=== PATIENT | male | born 1950 | race African-American/Black ===

== ENCOUNTER 2016-11-28 04:36 | Inpatient (IN) | payer MEDICAID ==
[~2016-11-28] VITALS: Ht 177.8 cm; Wt 118.8 kg
[~2016-11-28 04:36] MED LIST: ASPI-1159 PO; ATOR10TA PO; DEXT15DR5 EACHEYE; GABA-531 PO; GLIP5TAB12 PO; LOSA1TAB33 PO; OMEP40CA34 PO; PIOG30TA10 PO; RIVA20TA PO
[2016-11-28] MEDS ORDERED: IPRATROPIUM BROMIDE (0.02%) 0.5MG/2.5ML NEB HHN STA (06:12)
[2016-11-28] MEDS ORDERED: ALBUTEROL (0.083%) 2.5MG/3ML NEB HHN STA (06:12)
[2016-11-28] MEDS ORDERED: MAGNESIUM 2 G PREMIX 50 ML IV ONE (06:15)
[2016-11-28] MEDS ORDERED: HYDROCODONE/ACETAMINOPHEN 5/325MG TABLET PO ONE (06:15)
[2016-11-28] MEDS ORDERED: NITROGLYCERIN OINT 1GM/INCH UDPKT TD ONE (06:15)
[2016-11-28 06:52] LABS: BASOPHILS % 1.1 % (0.0-2.0); EOSINOPHILS % 1.8 % (0.0-5.0); HEMATOCRIT. 44.3 % (42.0-52.0); HEMOGLOBIN. 14.9 g/dL (14.0-18.0); LYMPHOCYTES % 27.8 % (20.0-50.0); MEAN CORPUSCULAR HEMOGLOBIN 30.6 pg (28.0-32.0); MEAN CORPUSCULAR VOLUME 91.1 fL (80.0-94.0); MONOCYTES % 11.1 % (2.0-8.0); NEUTROPHILS % 58.2 % (40.0-76.0); PLATELET 205 x1000/uL (130-400); RED BLOOD CELL COUNT 4.86 mill/uL (4.7-6.1); RED CELL DISTRIBUTION WIDTH 13.6 % (11.6-14.6)
[2016-11-28 06:58] LABS: INR 1.1; PARTIAL THROMBOPLASTIN TIME 26.4 sec (23.4-31.0)
[2016-11-28 07:09] LABS: CARBON DIOXIDE 27 mEq/L (21-32); CHLORIDE 103 mEq/L (98-107); TROPONIN I < 0.02 ng/mL (0.00-0.04)
[2016-11-28] MEDS ORDERED: FUROSEMIDE 20MG/2ML VIAL IVP ONE (09:15)
[2016-11-28 09:18] LABS: CLARITY URINE CLEAR (CLEAR); COLOR URINE DARK YELLOW (YELLOW); GLUCOSE URINE NEGATIVE (NEGATIVE); KETONES URINE TRACE (NEGATIVE); LEUKOCYTE ESTERASE URINE 2+ (NEGATIVE); NITRITE URINE NEGATIVE (NEGATIVE); OCCULT BLOOD URINE NEGATIVE (NEGATIVE); PH URINE 5.5 (4.5-8.0); PROTEIN URINE TRACE (NEGATIVE); SPECIFIC GRAVITY URINE 1.034 (1.005-1.030)
[2016-11-28 10:45] VITALS: BP 130/69
[2016-11-28] MEDS ORDERED: ONDANSETRON HCL 4MG/2ML VIAL IV PRN (11:45)
[2016-11-28] MEDS ORDERED: IPRATROPIUM/ALBUTEROL 0.5-3(2.5)MG/3ML NEB INH PRN (11:45)
[2016-11-28] MEDS ORDERED: DIPHENHYDRAMINE 50MG/ML VIAL IV PRN (11:45)
[2016-11-28] MEDS ORDERED: GUAIFENESIN 200MG/10ML SUGAR FREE UDC PO PRN (11:45)
[2016-11-28] MEDS ORDERED: MAGNESIUM/ALUMINUM HYDROXIDE/SIMETHICONE 30ML UDC PO PRN (11:45)
[2016-11-28] MEDS ORDERED: ACETAMINOPHEN 325MG TABLET PO PRN (11:45)
[2016-11-28] MEDS ORDERED: CLONIDINE 0.1MG TABLET PO PRN (11:45)
[2016-11-28 12:00] VITALS: BP 113/71
[2016-11-28] MEDS ORDERED: DEXTROSE 50% WATER 50ML SYRINGE IV PRN (12:00)
[2016-11-28] MEDS: INSULIN LISPRO 100 UNITS/ML SUBCUT SCH ×3 (12:15→21:00)
[2016-11-28] MEDS: HYDROCODONE/ACETAMINOPHEN 5/325MG TABLET PO PRN (14:41)
[2016-11-28 16:00] VITALS: BP 115/51
[2016-11-28 16:33] LABS: CREATINE KINASE 181 IU/L (39-308); CREATINE KINASE MB FRACTION 0.7 ng/mL (0.5-3.6); TROPONIN I < 0.02 ng/mL (0.00-0.04)
[2016-11-28] MEDS: RIVAROXABAN 20 MG TABLET PO SCH (16:48)
[2016-11-28] MEDS: BLOOD SUGAR DIAGNOSTIC STRIP TEST SCH ×2 (16:48→21:00)
[2016-11-28] MEDS: POLYVINYL ALCOHOL OPHTH DROPS 15ML EACHEYE SCH (16:48)
[2016-11-28 18:54] LABS: CLARITY URINE CLEAR (CLEAR); COLOR URINE DARK YELLOW (YELLOW); GLUCOSE URINE NEGATIVE (NEGATIVE); KETONES URINE NEGATIVE (NEGATIVE); LEUKOCYTE ESTERASE URINE 2+ (NEGATIVE); NITRITE URINE NEGATIVE (NEGATIVE); OCCULT BLOOD URINE NEGATIVE (NEGATIVE); PH URINE 5.5 (4.5-8.0); PROTEIN URINE NEGATIVE (NEGATIVE); SPECIFIC GRAVITY URINE 1.026 (1.005-1.030)
[2016-11-28 20:00] VITALS: BP 96/47
[2016-11-28 22:00] VITALS: BP 122/77
[2016-11-28] MEDS: ATORVASTATIN CALCIUM 10MG TABLET PO SCH (22:02)
[2016-11-28] MEDS: GABAPENTIN 300MG CAPSULE PO SCH (22:03)
[2016-11-28] MEDS: ZOLPIDEM TARTRATE 5MG TABLET PO PRN (22:03)
[2016-11-29] VITALS (7 sets, daily range): BP systolic 74–129; BP diastolic 37–87
[2016-11-29 00:22] LABS: CREATINE KINASE 172 IU/L (39-308); CREATINE KINASE MB FRACTION 1.3 ng/mL (0.5-3.6); TROPONIN I < 0.02 ng/mL (0.00-0.04)
[2016-11-29] MEDS: HYDROCODONE/ACETAMINOPHEN 5/325MG TABLET PO PRN ×3 (03:03→18:41)
[2016-11-29] MEDS: BLOOD SUGAR DIAGNOSTIC STRIP TEST SCH ×4 (06:05→20:04)
[2016-11-29] MEDS: INSULIN LISPRO 100 UNITS/ML SUBCUT SCH ×4 (06:05→20:04)
[2016-11-29] MEDS: OMEPRAZOLE 20MG CAPSULE EXTENDED RELEASE PO SCH (07:02)
[2016-11-29 07:22] LABS: CARBON DIOXIDE 26 mEq/L (21-32); CHLORIDE 101 mEq/L (98-107)
[2016-11-29] MEDS ORDERED: SODIUM CHLORIDE 0.9% 200 ML IV SCH (08:00)
[2016-11-29] MEDS: GLIPIZIDE 5MG TABLET PO SCH (08:22)
[2016-11-29] MEDS: POLYVINYL ALCOHOL OPHTH DROPS 15ML EACHEYE SCH ×2 (08:22→17:08)
[2016-11-29] MEDS: PIOGLITAZONE 30MG TABLET PO SCH (08:22)
[2016-11-29] MEDS: ASPIRIN 81MG EC TABLET PO SCH (08:22)
[2016-11-29] MEDS: HYDROCHLOROTHIAZIDE 12.5MG CAPSULE PO SCH (08:23)
[2016-11-29] MEDS: LOSARTAN POTASSIUM 100 MG TABLET PO SCH (08:23)
[2016-11-29] MEDS: FUROSEMIDE 20MG/2ML VIAL IV SCH (08:23)
[2016-11-29] MEDS ORDERED: ASPIRIN 81MG EC TABLET PO SCH (09:00)
[2016-11-29 09:41] LABS: EOSINOPHILS % 2.6 % (0.0-5.0); HEMATOCRIT. 44.8 % (42.0-52.0); HEMOGLOBIN. 14.7 g/dL (14.0-18.0); LYMPHOCYTES % 25.6 % (20.0-50.0); MEAN CORPUSCULAR HEMOGLOBIN 30.3 pg (28.0-32.0); MEAN CORPUSCULAR VOLUME 92.1 fL (80.0-94.0); MEAN PLATELET VOLUME 8.3 fl (7.4-10.4); MONOCYTES % 8.3 % (2.0-8.0); NEUTROPHILS % 62.5 % (40.0-76.0); PLATELET 212 x1000/uL (130-400); RED BLOOD CELL COUNT 4.87 mill/uL (4.7-6.1); RED CELL DISTRIBUTION WIDTH 13.5 % (11.6-14.6)
[2016-11-29] MEDS: RIVAROXABAN 20 MG TABLET PO SCH (17:09)
[2016-11-29] MEDS: ATORVASTATIN CALCIUM 10MG TABLET PO SCH (20:03)
[2016-11-29] MEDS: GABAPENTIN 300MG CAPSULE PO SCH (20:03)
[2016-11-29] MEDS: ZOLPIDEM TARTRATE 5MG TABLET PO PRN (22:10)
[2016-11-30] VITALS (7 sets, daily range): BP systolic 98–138; BP diastolic 61–94
[2016-11-30] MEDS: BLOOD SUGAR DIAGNOSTIC STRIP TEST SCH ×4 (06:19→21:03)
[2016-11-30] MEDS: INSULIN LISPRO 100 UNITS/ML SUBCUT SCH ×4 (06:22→21:00)
[2016-11-30] MEDS: OMEPRAZOLE 20MG CAPSULE EXTENDED RELEASE PO SCH (07:03)
[2016-11-30] MEDS: GLIPIZIDE 5MG TABLET PO SCH (07:03)
[2016-11-30] MEDS: HYDROCHLOROTHIAZIDE 12.5MG CAPSULE PO SCH (08:53)
[2016-11-30] MEDS: PIOGLITAZONE 30MG TABLET PO SCH (08:55)
[2016-11-30] MEDS: HYDROCODONE/ACETAMINOPHEN 5/325MG TABLET PO PRN (08:55)
[2016-11-30] MEDS: FUROSEMIDE 20MG/2ML VIAL IV SCH (08:55)
[2016-11-30] MEDS: ASPIRIN 81MG EC TABLET PO SCH (08:56)
[2016-11-30] MEDS: LOSARTAN POTASSIUM 100 MG TABLET PO SCH (08:56)
[2016-11-30] MEDS: POLYVINYL ALCOHOL OPHTH DROPS 15ML EACHEYE SCH ×2 (11:36→16:56)
[2016-11-30] MEDS ORDERED: METOPROLOL TARTRATE 5MG/5ML VIAL IV NR (12:15)
[2016-11-30] MEDS: RIVAROXABAN 20 MG TABLET PO SCH (16:56)
[2016-11-30] MEDS: GABAPENTIN 300MG CAPSULE PO SCH (21:02)
[2016-11-30] MEDS: DOCUSATE SODIUM 100MG CAPSULE PO PRN (21:02)
[2016-11-30] MEDS: METOPROLOL TARTRATE 50MG TABLET PO SCH (21:03)
[2016-11-30] MEDS: ZOLPIDEM TARTRATE 5MG TABLET PO PRN (21:03)
[2016-11-30] MEDS: ATORVASTATIN CALCIUM 10MG TABLET PO SCH (21:03)
[2016-12-01] VITALS: BP 117/73
[2016-12-01 04:00] VITALS: BP_SYST 103; BP_SYST 117; BP_DIAS 73; BP_DIAS 75
[2016-12-01] MEDS: INSULIN LISPRO 100 UNITS/ML SUBCUT SCH ×4 (06:02→21:00)
[2016-12-01] MEDS: BLOOD SUGAR DIAGNOSTIC STRIP TEST SCH ×4 (06:02→20:58)
[2016-12-01 07:06] LABS: BASOPHILS % 0.6 % (0.0-2.0); EOSINOPHILS % 1.2 % (0.0-5.0); HEMOGLOBIN. 14.7 g/dL (14.0-18.0); LYMPHOCYTES % 17.2 % (20.0-50.0); MEAN CORPUSCULAR HEMOGLOBIN 30.6 pg (28.0-32.0); MEAN CORPUSCULAR VOLUME 91.2 fL (80.0-94.0); MEAN PLATELET VOLUME 8.5 fl (7.4-10.4); PLATELET 216 x1000/uL (130-400); RED BLOOD CELL COUNT 4.82 mill/uL (4.7-6.1); RED CELL DISTRIBUTION WIDTH 13.3 % (11.6-14.6)
[2016-12-01 07:37] LABS: CARBON DIOXIDE 27 mEq/L (21-32); CHLORIDE 101 mEq/L (98-107)
[2016-12-01 08:00] VITALS: BP 105/93
[2016-12-01] MEDS: FUROSEMIDE 20MG/2ML VIAL IV SCH (08:40)
[2016-12-01] MEDS: LOSARTAN POTASSIUM 100 MG TABLET PO SCH (08:40)
[2016-12-01] MEDS: GLIPIZIDE 5MG TABLET PO SCH (08:41)
[2016-12-01] MEDS: ASPIRIN 81MG EC TABLET PO SCH (08:41)
[2016-12-01] MEDS: HYDROCHLOROTHIAZIDE 12.5MG CAPSULE PO SCH (08:41)
[2016-12-01] MEDS: DOCUSATE SODIUM 100MG CAPSULE PO PRN (08:41)
[2016-12-01] MEDS: PIOGLITAZONE 30MG TABLET PO SCH (08:41)
[2016-12-01] MEDS: METOPROLOL TARTRATE 50MG TABLET PO SCH (08:42)
[2016-12-01] MEDS: OMEPRAZOLE 20MG CAPSULE EXTENDED RELEASE PO SCH (08:42)
[2016-12-01] MEDS: POLYVINYL ALCOHOL OPHTH DROPS 15ML EACHEYE SCH ×2 (08:43→16:25)
[2016-12-01] MEDS: RIVAROXABAN 20 MG TABLET PO SCH (16:25)
[2016-12-01 20:00] VITALS: BP 108/63
[2016-12-01] MEDS: GABAPENTIN 300MG CAPSULE PO SCH (20:56)
[2016-12-01] MEDS: ATORVASTATIN CALCIUM 10MG TABLET PO SCH (20:56)
[2016-12-01] MEDS: METOPROLOL TARTRATE 100MG TABLET PO SCH (20:56)
[2016-12-01] MEDS: ZOLPIDEM TARTRATE 5MG TABLET PO PRN (23:58)
[2016-12-02] VITALS: BP 110/63
[2016-12-02 04:00] VITALS: BP 105/61
[2016-12-02] MEDS: GLIPIZIDE 5MG TABLET PO SCH (06:17)
[2016-12-02] MEDS: BLOOD SUGAR DIAGNOSTIC STRIP TEST SCH ×2 (06:17→13:05)
[2016-12-02] MEDS: OMEPRAZOLE 20MG CAPSULE EXTENDED RELEASE PO SCH (06:17)
[2016-12-02] MEDS: INSULIN LISPRO 100 UNITS/ML SUBCUT SCH ×2 (06:39→12:15)
[2016-12-02 08:00] VITALS: BP 103/62
[2016-12-02] MEDS: METOPROLOL TARTRATE 100MG TABLET PO SCH (09:00)
[2016-12-02] MEDS ORDERED: LOSARTAN POTASSIUM 50 MG TABLET PO SCH (09:00)
[2016-12-02] MEDS: FUROSEMIDE 20MG/2ML VIAL IV SCH (10:14)
[2016-12-02] MEDS: ASPIRIN 81MG EC TABLET PO SCH (10:14)
[2016-12-02] MEDS: POLYVINYL ALCOHOL OPHTH DROPS 15ML EACHEYE SCH (10:14)
[2016-12-02] MEDS: PIOGLITAZONE 30MG TABLET PO SCH (10:14)
[2016-12-02] MEDS ORDERED: DILTIAZEM HCL 60MG TABLET PO SCH (11:00)
[2016-12-02 12:00] VITALS: BP 104/64
[2016-12-02] MEDS ORDERED: RIVA20TA PO (12:08)
[2016-12-02] MEDS ORDERED: FURO20TA4 PO (12:08)
[2016-12-02] MEDS ORDERED: METO100T5 PO (12:08)
[2016-12-02] MEDS ORDERED: DILT60TA35 PO (12:08)
[2016-12-02 15:13] VITALS: BP 104/64
[2016-12-03] MEDS ORDERED: FUROSEMIDE 20MG TABLET PO SCH (09:00)
== END 2016-12-02 15:50 | disposition home or self-care (01) | DRG 133 ==
LOC: ER 05:05 → ENRESERV 08:12 → EDBEDREQ 09:19 → 5WST 10:50
PROVIDERS: ADMIT Internal Medicine; ATTEND Internal Medicine
DX: J96.00 Acute respiratory failure, unspecified whether with hypoxia or hypercapnia (principal); I50.33 Acute on chronic diastolic (congestive) heart failure; I69.351 Hemiplegia and hemiparesis following cerebral infarction affecting right dominant side; E44.1 Mild protein-calorie malnutrition; J44.1 Chronic obstructive pulmonary disease with (acute) exacerbation; I48.91 Unspecified atrial fibrillation; I11.0 Hypertensive heart disease with heart failure; K27.9 Peptic ulcer, site unspecified, unspecified as acute or chronic, without hemorrhage or perforation; I25.119 Atherosclerotic heart disease of native coronary artery with unspecified angina pectoris; E66.01 Morbid (severe) obesity due to excess calories; K21.9 Gastro-esophageal reflux disease without esophagitis; E11.9 Type 2 diabetes mellitus without complications; E78.5 Hyperlipidemia, unspecified; H55.00 Unspecified nystagmus; H91.90 Unspecified hearing loss, unspecified ear; N39.0 Urinary tract infection, site not specified; Z79.01 Long term (current) use of anticoagulants; Z90.49 Acquired absence of other specified parts of digestive tract; I69.392 Facial weakness following cerebral infarction; Z68.37 Body mass index [BMI] 37.0-37.9, adult
CPT/HCPCS: 36415; 71010; 80048; 80053; 81001; 82550; 82553; 82962; 83605; 83690; 83880; 84439; 84443; 84484; 85025; 85610; 85730; 87040; 87086; 93005; 93970; 94664; 96365; 96375; 97162; 99291; J1940; J3475; J3490; J7050; J7611

== ENCOUNTER 2016-12-27 20:56 | Inpatient (IN) | payer MEDICAID ==
[~2016-12-27] VITALS: Ht 188 cm; Wt 162.4 kg
[~2016-12-27 20:56] MED LIST changes: +DILT60TA35 PO; +FURO20TA4 PO; -LOSA1TAB33 PO; +METO100T5 PO
[2016-12-28] MEDS ORDERED: ONDANSETRON HCL 4MG/2ML VIAL IV STA (01:31)
[2016-12-28] MEDS ORDERED: MORPHINE SULFATE 4 MG/ML CPJ (NOT FOR IM USE) IV STA (01:31)
[2016-12-28] MEDS ORDERED: FENTANYL CITRATE/PF 50MCG/ML 2ML VIAL IV ONE (01:45)
[2016-12-28 02:00] LABS: BASOPHILS % 0.9 % (0.0-2.0); EOSINOPHILS % 1.4 % (0.0-5.0); HEMATOCRIT. 42.1 % (42.0-52.0); HEMOGLOBIN. 14.5 g/dL (14.0-18.0); MEAN CORPUSCULAR VOLUME 90.1 fL (80.0-94.0); MEAN PLATELET VOLUME 7.3 fl (7.4-10.4); MONOCYTES % 7.3 % (2.0-8.0); NEUTROPHILS % 71.4 % (40.0-76.0); PLATELET 209 x1000/uL (130-400); RED BLOOD CELL COUNT 4.67 mill/uL (4.7-6.1); RED CELL DISTRIBUTION WIDTH 13.5 % (11.6-14.6)
[2016-12-28 02:04] LABS: INR 1.2; PROTHROMBIN TIME 12.7 sec (9.4-11.6)
[2016-12-28 02:14] LABS: CARBON DIOXIDE 28 mEq/L (21-32); CHLORIDE 98 mEq/L (98-107); TROPONIN I < 0.02 ng/mL (0.00-0.04)
[2016-12-28] MEDS ORDERED: FUROSEMIDE 40MG/4ML VIAL IVP SCH (02:30)
[2016-12-28] MEDS ORDERED: ASPIRIN 81MG TABLET PO ONE (04:00)
[2016-12-28 09:17] VITALS: BP 121/44
[2016-12-28] MEDS ORDERED: CLONIDINE 0.1MG TABLET PO PRN (09:30)
[2016-12-28] MEDS ORDERED: DEXTROSE 50% WATER 50ML SYRINGE IV PRN (09:30)
[2016-12-28] MEDS ORDERED: ACETAMINOPHEN 325MG TABLET PO PRN (09:30)
[2016-12-28] MEDS ORDERED: LORAZEPAM 1MG TABLET PO PRN (09:30)
[2016-12-28] MEDS ORDERED: DIPHENHYDRAMINE 50MG/ML VIAL IV PRN (09:30)
[2016-12-28] MEDS ORDERED: ONDANSETRON HCL 4MG/2ML VIAL IV PRN (09:30)
[2016-12-28] MEDS: GLIPIZIDE 5MG TABLET PO SCH (10:27)
[2016-12-28] MEDS: FUROSEMIDE 20MG TABLET PO SCH (10:27)
[2016-12-28] MEDS: BLOOD SUGAR DIAGNOSTIC STRIP TEST SCH ×3 (11:56→20:24)
[2016-12-28] MEDS: PIOGLITAZONE 30MG TABLET PO SCH (11:58)
[2016-12-28] MEDS: INSULIN LISPRO 100 UNITS/ML SUBCUT SCH ×3 (11:59→20:24)
[2016-12-28 12:00] VITALS: BP 124/86
[2016-12-28 15:50] LABS: CLARITY URINE CLEAR (CLEAR); COLOR URINE YELLOW (YELLOW); GLUCOSE URINE NEGATIVE (NEGATIVE); KETONES URINE NEGATIVE (NEGATIVE); LEUKOCYTE ESTERASE URINE 1+ (NEGATIVE); NITRITE URINE NEGATIVE (NEGATIVE); OCCULT BLOOD URINE NEGATIVE (NEGATIVE); PROTEIN URINE NEGATIVE (NEGATIVE); SPECIFIC GRAVITY URINE 1.015 (1.005-1.030)
[2016-12-28 16:00] VITALS: BP 124/80
[2016-12-28 16:13] LABS: *AMPHETAMINES SCREEN URINE NEGATIVE (NEGATIVE); *BARBITURATES SCREEN URINE NEGATIVE (NEGATIVE); *BENZODIAZEPINES SCREEN URINE NEGATIVE (NEGATIVE); *COCAINE SCREEN URINE NEGATIVE (NEGATIVE); CANNABINOID URINE SCREEN NEGATIVE (NEGATIVE); METHADONE URINE SCREEN NEGATIVE (NEGATIVE); OPIATES URINE SCREEN PRESUMTIVE POSITIVE (NEGATIVE); PHENCYCLIDINE URINE SCREEN NEGATIVE (NEGATIVE)
[2016-12-28] MEDS: RIVAROXABAN 20 MG TABLET PO SCH (17:21)
[2016-12-28] MEDS: DILTIAZEM HCL 60MG TABLET PO SCH (17:22)
[2016-12-28] MEDS: HYDROCODONE/ACETAMINOPHEN 10/325MG TABLET PO PRN (17:22)
[2016-12-28 17:40] LABS: TROPONIN I < 0.02 ng/mL (0.00-0.04)
[2016-12-28 17:41] LABS: CREATINE KINASE 344 IU/L (39-308)
[2016-12-28] MEDS ORDERED: DILTIAZEM HCL 60MG TABLET PO SCH ×2 (18:00→21:00)
[2016-12-28 20:00] VITALS: BP 106/69
[2016-12-28] MEDS: METOPROLOL TARTRATE 100MG TABLET PO SCH (20:25)
[2016-12-28] MEDS: ATORVASTATIN CALCIUM 10MG TABLET PO SCH (20:30)
[2016-12-28] MEDS: GABAPENTIN 300MG CAPSULE PO SCH (20:30)
[2016-12-28] MEDS: ZOLPIDEM TARTRATE 5MG TABLET PO PRN (22:03)
[2016-12-29] VITALS: BP 138/90
[2016-12-29 00:28] LABS: CREATINE KINASE 237 IU/L (39-308); TROPONIN I < 0.02 ng/mL (0.00-0.04)
[2016-12-29] MEDS: DILTIAZEM HCL 60MG TABLET PO SCH ×4 (00:35→17:30)
[2016-12-29 04:00] VITALS: BP 112/77
[2016-12-29] MEDS: INSULIN LISPRO 100 UNITS/ML SUBCUT SCH ×4 (06:22→20:21)
[2016-12-29] MEDS: BLOOD SUGAR DIAGNOSTIC STRIP TEST SCH ×4 (06:22→20:20)
[2016-12-29 08:00] VITALS: BP 117/87
[2016-12-29] MEDS: METOPROLOL TARTRATE 100MG TABLET PO SCH (09:00)
[2016-12-29] MEDS: PIOGLITAZONE 30MG TABLET PO SCH (09:17)
[2016-12-29] MEDS: DOCUSATE SODIUM 100MG CAPSULE PO PRN ×2 (09:18→17:30)
[2016-12-29] MEDS: FUROSEMIDE 20MG TABLET PO SCH (09:18)
[2016-12-29] MEDS: ASPIRIN 81MG EC TABLET PO SCH (09:18)
[2016-12-29] MEDS: GLIPIZIDE 5MG TABLET PO SCH (09:18)
[2016-12-29 09:39] LABS: BASOPHILS % 0.8 % (0.0-2.0); EOSINOPHILS % 2.1 % (0.0-5.0); HEMATOCRIT. 47.6 % (42.0-52.0); HEMOGLOBIN. 15.8 g/dL (14.0-18.0); MEAN CORPUSCULAR HEMOGLOBIN 30.2 pg (28.0-32.0); MEAN CORPUSCULAR VOLUME 91.1 fL (80.0-94.0); MEAN PLATELET VOLUME 7.9 fl (7.4-10.4); MONOCYTES % 9.3 % (2.0-8.0); NEUTROPHILS % 61.8 % (40.0-76.0); PLATELET 220 x1000/uL (130-400); RED BLOOD CELL COUNT 5.23 mill/uL (4.7-6.1); RED CELL DISTRIBUTION WIDTH 13.3 % (11.6-14.6)
[2016-12-29 10:05] LABS: CARBON DIOXIDE 27 mEq/L (21-32); CHLORIDE 96 mEq/L (98-107); HDL CHOLESTEROL 74 mg/dL (40-59); LDL CHOLESTEROL 54 mg/dL (5-100)
[2016-12-29 12:23] VITALS: BP 126/78
[2016-12-29 15:57] VITALS: BP 133/85
[2016-12-29] MEDS: RIVAROXABAN 20 MG TABLET PO SCH (17:30)
[2016-12-29] MEDS: HYDROCODONE/ACETAMINOPHEN 10/325MG TABLET PO PRN (17:32)
[2016-12-29 20:00] VITALS: BP 115/80
[2016-12-29] MEDS: ATORVASTATIN CALCIUM 10MG TABLET PO SCH (20:17)
[2016-12-29] MEDS: GABAPENTIN 300MG CAPSULE PO SCH (20:19)
[2016-12-29] MEDS: METOPROLOL TARTRATE 50MG TABLET PO SCH (20:19)
[2016-12-29] MEDS: ZOLPIDEM TARTRATE 5MG TABLET PO PRN (22:04)
[2016-12-30] VITALS: BP 118/76
[2016-12-30 04:00] VITALS: BP 128/74
[2016-12-30] MEDS: DILTIAZEM HCL 60MG TABLET PO SCH ×2 (05:54)
[2016-12-30] MEDS: BLOOD SUGAR DIAGNOSTIC STRIP TEST SCH ×4 (06:07→21:00)
[2016-12-30] MEDS: INSULIN LISPRO 100 UNITS/ML SUBCUT SCH ×4 (06:08→21:00)
[2016-12-30 07:37] VITALS: BP 119/76
[2016-12-30] MEDS: PIOGLITAZONE 30MG TABLET PO SCH (08:10)
[2016-12-30] MEDS: ASPIRIN 81MG EC TABLET PO SCH (08:10)
[2016-12-30] MEDS: METOPROLOL TARTRATE 50MG TABLET PO SCH (08:11)
[2016-12-30] MEDS: GLIPIZIDE 5MG TABLET PO SCH (08:11)
[2016-12-30] MEDS: FUROSEMIDE 20MG TABLET PO SCH (09:00)
[2016-12-30] MEDS ORDERED: METOPROLOL TARTRATE 50MG TABLET PO SCH (10:50)
[2016-12-30] MEDS: DILTIAZEM HCL 90MG TABLET PO SCH ×3 (11:13→23:59)
[2016-12-30 12:00] VITALS: BP 113/78
[2016-12-30 16:08] VITALS: BP 117/70
[2016-12-30] MEDS: RIVAROXABAN 20 MG TABLET PO SCH (17:26)
[2016-12-30 20:00] VITALS: BP 102/63
[2016-12-30] MEDS: METOPROLOL TARTRATE 100MG TABLET PO SCH (20:42)
[2016-12-30] MEDS: ATORVASTATIN CALCIUM 10MG TABLET PO SCH (20:42)
[2016-12-30] MEDS: GABAPENTIN 300MG CAPSULE PO SCH (20:42)
[2016-12-30] MEDS: ZOLPIDEM TARTRATE 5MG TABLET PO PRN (21:41)
[2016-12-31] VITALS (7 sets, daily range): BP systolic 93–113; BP diastolic 56–79
[2016-12-31] MEDS: INSULIN LISPRO 100 UNITS/ML SUBCUT SCH ×4 (05:58→21:00)
[2016-12-31] MEDS: BLOOD SUGAR DIAGNOSTIC STRIP TEST SCH ×4 (05:58→21:28)
[2016-12-31] MEDS: DILTIAZEM HCL 90MG TABLET PO SCH ×4 (05:58→23:55)
[2016-12-31] MEDS: GLIPIZIDE 5MG TABLET PO SCH (08:38)
[2016-12-31] MEDS: PIOGLITAZONE 30MG TABLET PO SCH (08:39)
[2016-12-31] MEDS: FUROSEMIDE 20MG TABLET PO SCH (08:39)
[2016-12-31] MEDS: METOPROLOL TARTRATE 100MG TABLET PO SCH ×2 (08:39→21:26)
[2016-12-31] MEDS: ASPIRIN 81MG EC TABLET PO SCH (08:39)
[2016-12-31] MEDS ORDERED: METOPROLOL TARTRATE 5MG/5ML VIAL IV SCH (11:00)
[2016-12-31] MEDS: RIVAROXABAN 20 MG TABLET PO SCH (16:15)
[2016-12-31] MEDS: GABAPENTIN 300MG CAPSULE PO SCH (21:26)
[2016-12-31] MEDS: ATORVASTATIN CALCIUM 10MG TABLET PO SCH (21:26)
[2016-12-31] MEDS: HYDROCODONE/ACETAMINOPHEN 10/325MG TABLET PO PRN (21:27)
[2016-12-31] MEDS: ZOLPIDEM TARTRATE 5MG TABLET PO PRN (22:07)
[2017-01-01 04:00] VITALS: BP 118/72
[2017-01-01] MEDS: DILTIAZEM HCL 90MG TABLET PO SCH (05:29)
[2017-01-01] MEDS: INSULIN LISPRO 100 UNITS/ML SUBCUT SCH ×2 (07:40→12:07)
[2017-01-01] MEDS: BLOOD SUGAR DIAGNOSTIC STRIP TEST SCH ×2 (07:40→12:07)
[2017-01-01 08:00] VITALS: BP 131/72
[2017-01-01] MEDS: GLIPIZIDE 5MG TABLET PO SCH (09:30)
[2017-01-01] MEDS: PIOGLITAZONE 30MG TABLET PO SCH (09:30)
[2017-01-01] MEDS: FUROSEMIDE 20MG TABLET PO SCH (09:30)
[2017-01-01] MEDS: ASPIRIN 81MG EC TABLET PO SCH (09:30)
[2017-01-01] MEDS: METOPROLOL TARTRATE 100MG TABLET PO SCH (09:30)
[2017-01-01 12:00] VITALS: BP 104/56
[2017-01-01] MEDS ORDERED: DILTIAZEM HCL 240MG ER (24HR) PO NR (12:15)
[2017-01-01] MEDS ORDERED: ISOSORBIDE MONONITRATE 60MG TABLET SR 24HR PO SCH (12:15)
[2017-01-01 12:29] VITALS: BP 131/72
== END 2017-01-01 13:47 | disposition home or self-care (01) | DRG 198 ==
LOC: ER 21:14 → 8WST 12-28 03:56 → EDBEDREQTM 12-28 03:58 → EDBEDREQ 12-28 03:58 → ENRESERV 12-28 06:13 → 8WST 12-28 08:22
PROVIDERS: ADMIT Internal Medicine; ATTEND Internal Medicine
DX: I25.119 Atherosclerotic heart disease of native coronary artery with unspecified angina pectoris (principal); I11.0 Hypertensive heart disease with heart failure; I50.9 Heart failure, unspecified; I48.91 Unspecified atrial fibrillation; E11.9 Type 2 diabetes mellitus without complications; R51 Headache; E78.5 Hyperlipidemia, unspecified; E66.01 Morbid (severe) obesity due to excess calories; K21.9 Gastro-esophageal reflux disease without esophagitis; I69.351 Hemiplegia and hemiparesis following cerebral infarction affecting right dominant side; Z68.42 Body mass index [BMI] 45.0-49.9, adult; Z88.5 Allergy status to narcotic agent; Z79.01 Long term (current) use of anticoagulants; Z79.82 Long term (current) use of aspirin; Z79.899 Other long term (current) drug therapy; Z90.49 Acquired absence of other specified parts of digestive tract
CPT/HCPCS: 36415; 70450; 71010; 75571; 80053; 80061; 80305; 81001; 82550; 82962; 83880; 84443; 84484; 85025; 85610; 93005; 93970; 96374; 96375; 97116; 97163; 99285; J1815; J1940; J2270; J2405; J3010; J3490

== ENCOUNTER 2018-03-26 16:56 | Inpatient (IN) | payer MEDICARE, MEDICAID ==
[~2018-03-26] VITALS: Ht 177.8 cm; Wt 120.2 kg
[~2018-03-26 16:56] MED LIST changes: +METO100T16 PO; -METO100T5 PO; +ZOLP10TA2 PO
[2018-03-26] MEDS ORDERED: ACETAMINOPHEN 325MG TABLET PO ONE (18:15)
[2018-03-26] MEDS ORDERED: TRAMADOL 50MG TABLET PO ONE (20:15)
[2018-03-27] VITALS (7 sets, daily range): BP systolic 110–152; BP diastolic 68–94
[2018-03-27] MEDS ORDERED: ONDANSETRON HCL 4MG/2ML INJ IV ONE
[2018-03-27] MEDS ORDERED: MORPHINE SULFATE 4 MG/ML CPJ (NOT FOR IM USE) IV ONE
[2018-03-27 00:05] LABS: BASOPHILS % 0.7 % (0.0-2.0); EOSINOPHILS % 0.9 % (0.0-5.0); HEMATOCRIT. 45.2 % (42.0-52.0); LYMPHOCYTES % 20.6 % (20.0-50.0); MEAN CORPUSCULAR HEMOGLOBIN 30.6 pg (28.0-32.0); MEAN CORPUSCULAR VOLUME 92.1 fL (80.0-94.0); MONOCYTES % 8.9 % (2.0-8.0); NEUTROPHILS % 68.9 % (40.0-76.0); PLATELET 264 x1000/uL (130-400); RED BLOOD CELL COUNT 4.91 mill/uL (4.7-6.1); RED CELL DISTRIBUTION WIDTH 13.8 % (11.6-14.6)
[2018-03-27 00:14] LABS: CHLORIDE 96 mEq/L (98-107)
[2018-03-27] MEDS ORDERED: MORPHINE SULFATE 10 MG/ML CPJ IV NR (00:30)
[2018-03-27] MEDS ORDERED: POTASSIUM CHLORIDE 20MEQ TABLET SR PO ONE (01:15)
[2018-03-27] MEDS ORDERED: MEDICATION NOT ON FORMULARY EA (Zolpidem Tartrate (Ambien) 10 MG) PO PRN (02:45)
[2018-03-27] MEDS ORDERED: ZOLPIDEM TARTRATE 5MG TABLET PO PRN (02:45)
[2018-03-27] MEDS ORDERED: METOPROLOL TARTRATE 50MG TABLET PO SCH ×2 (03:00→09:00)
[2018-03-27] MEDS ORDERED: DEXTROSE 50% WATER 50ML SYRINGE IV PRN (03:15)
[2018-03-27] MEDS: HYDROMORPHONE HCL/PF 2MG/ML CPJ IV PRN ×3 (03:21→15:04)
[2018-03-27] MEDS: BLOOD SUGAR DIAGNOSTIC STRIP TEST SCH ×2 (06:52→12:13)
[2018-03-27] MEDS ORDERED: OMEPRAZOLE 20MG CAPSULE EXTENDED RELEASE PO SCH (07:20)
[2018-03-27] MEDS: INSULIN LISPRO 100 UNITS/ML SUBCUT SCH ×2 (07:40→12:13)
[2018-03-27] MEDS: POLYVINYL ALCOHOL OPHTH DROPS 15ML EACHEYE SCH ×2 (08:16→12:12)
[2018-03-27] MEDS: GABAPENTIN 300MG CAPSULE PO SCH ×2 (08:16→12:05)
[2018-03-27] MEDS ORDERED: HYDROCODONE/ACETAMINOPHEN 5/325MG TABLET PO PRN (08:30)
[2018-03-27] MEDS ORDERED: MEDICATION NOT ON FORMULARY EA (Diltiazem HCl (Cardizem) 60 MG) PO SCH (09:00)
[2018-03-27] MEDS ORDERED: DILTIAZEM HCL 60MG TABLET PO SCH (09:00)
[2018-03-27] MEDS ORDERED: MEDICATION NOT ON FORMULARY EA (Omeprazole 1 CAP) PO SCH (09:00)
[2018-03-27] MEDS ORDERED: MEDICATION NOT ON FORMULARY EA (Gabapentin 1 CAP) PO SCH (09:00)
[2018-03-27] MEDS ORDERED: ASPIRIN 81MG TABLET PO SCH (09:00)
[2018-03-27] MEDS ORDERED: MEDICATION NOT ON FORMULARY EA (Aspirin (Aspirin Low Dose) 1 TAB) PO SCH (09:00)
[2018-03-27] MEDS ORDERED: MEDICATION NOT ON FORMULARY EA (Dextran 70/Hypromellose (Artificial Tears Eye Drops) 1 D EACHEYE SCH (09:00)
[2018-03-27] MEDS ORDERED: MEDICATION NOT ON FORMULARY EA (Furosemide 20 MG) PO SCH (09:00)
[2018-03-27] MEDS ORDERED: FUROSEMIDE 20MG TABLET PO SCH (09:00)
[2018-03-27] MEDS ORDERED: ATORVASTATIN CALCIUM 10MG TABLET PO SCH (21:00)
== END 2018-03-27 17:36 | disposition home or self-care (01) | DRG 563 ==
LOC: ER 16:56 → 6EST 23:03 → ENRESERV 23:19
PROVIDERS: ADMIT Internal Medicine; ATTEND Internal Medicine
PROC: 2W3QX1Z Immobilization of Right Lower Leg using Splint (ICD-10-PCS; principal; 2018-03-26)
DX: S92.321A Displaced fracture of second metatarsal bone, right foot, initial encounter for closed fracture (principal); I69.951 Hemiplegia and hemiparesis following unspecified cerebrovascular disease affecting right dominant side; I10 Essential (primary) hypertension; E78.5 Hyperlipidemia, unspecified; M16.10 Unilateral primary osteoarthritis, unspecified hip; E87.6 Hypokalemia; E87.8 Other disorders of electrolyte and fluid balance, not elsewhere classified; E11.51 Type 2 diabetes mellitus with diabetic peripheral angiopathy without gangrene; W01.0XXA Fall on same level from slipping, tripping and stumbling without subsequent striking against object, initial encounter; E66.9 Obesity, unspecified; Y93.89 Activity, other specified; Y92.89 Other specified places as the place of occurrence of the external cause; Y99.8 Other external cause status; Z90.49 Acquired absence of other specified parts of digestive tract; Z86.73 Personal history of transient ischemic attack (TIA), and cerebral infarction without residual deficits; Z79.82 Long term (current) use of aspirin; Z79.899 Other long term (current) drug therapy; Z79.84 Long term (current) use of oral hypoglycemic drugs; Z68.38 Body mass index [BMI] 38.0-38.9, adult; Z71.3 Dietary counseling and surveillance
CPT/HCPCS: 36415; 71045; 73502; 73610; 73630; 80048; 82962; 93005; 93970; 96374; 96375; 97162; 99285; J1170; J2270; J2405

== ENCOUNTER 2018-05-26 21:43 | Emergency (ER) | payer MEDICARE, MEDICAID ==
[~2018-05-26] VITALS: Ht 188 cm; Wt 153.0 kg
[2018-05-27 01:15] LABS: BASOPHILS % 0.7 % (0.0-2.0); EOSINOPHILS % 0.8 % (0.0-5.0); HEMATOCRIT. 43.7 % (42.0-52.0); HEMOGLOBIN. 14.4 g/dL (14.0-18.0); LYMPHOCYTES % 12.6 % (20.0-50.0); MEAN CORPUSCULAR HEMOGLOBIN 30.2 pg (28.0-32.0); MEAN CORPUSCULAR VOLUME 91.7 fL (80.0-94.0); MEAN PLATELET VOLUME 7.8 fl (7.4-10.4); MONOCYTES % 8.3 % (2.0-8.0); NEUTROPHILS % 77.6 % (40.0-76.0); PLATELET 251 x1000/uL (130-400); RED BLOOD CELL COUNT 4.76 mill/uL (4.7-6.1); RED CELL DISTRIBUTION WIDTH 14.1 % (11.6-14.6)
[2018-05-27 01:18] LABS: CHLORIDE 104 mEq/L (98-107)
[2018-05-27 02:34] LABS: CLARITY URINE CLEAR (CLEAR); COLOR URINE DARK YELLOW (YELLOW); KETONES URINE TRACE (NEGATIVE); LEUKOCYTE ESTERASE URINE 2+ (NEGATIVE); NITRITE URINE NEGATIVE (NEGATIVE); OCCULT BLOOD URINE NEGATIVE (NEGATIVE); PROTEIN URINE NEGATIVE (NEGATIVE); SPECIFIC GRAVITY URINE 1.027 (1.005-1.030)
[2018-05-27] MEDS ORDERED: CEFTRIAXONE 1 G PREMIX 50 ML IV SCH (03:43)
[2018-05-27 04:29] VITALS: BP 134/78
== END 2018-05-27 04:52 | disposition home or self-care (01) ==
LOC: ER 21:43
DX: N39.0 Urinary tract infection, site not specified (principal); J11.1 Influenza due to unidentified influenza virus with other respiratory manifestations; E11.9 Type 2 diabetes mellitus without complications; I10 Essential (primary) hypertension; E78.00 Pure hypercholesterolemia, unspecified; Z86.73 Personal history of transient ischemic attack (TIA), and cerebral infarction without residual deficits; Z79.82 Long term (current) use of aspirin
CPT/HCPCS: 36415; 71045; 74176; 80053; 81003; 82962; 83605; 83690; 85025; 93005; 96365; 99284; J0696

== ENCOUNTER 2018-09-21 14:47 | Inpatient (IN) | payer MEDICARE, MEDICAID ==
[~2018-09-21] VITALS: Ht 188 cm; Wt 154.2 kg
[~2018-09-21 14:47] MED LIST changes: -ASPI-1159 PO; +ASPI-1393 PO
[2018-09-21] MEDS ORDERED: MORPHINE SULFATE 4 MG/ML CPJ (NOT FOR IM USE) IV STA (15:27)
[2018-09-21] MEDS ORDERED: SODIUM CHLORIDE 0.9% 1,000 ML IV ONE (15:27)
[2018-09-21] MEDS ORDERED: ONDANSETRON HCL 4MG/2ML INJ IV STA (15:27)
[2018-09-21 16:29] LABS: BASOPHILS % 0.4 % (0.0-2.0); EOSINOPHILS % 0.2 % (0.0-5.0); HEMATOCRIT. 49.4 % (42.0-52.0); HEMOGLOBIN. 16.4 g/dL (14.0-18.0); LYMPHOCYTES % 8.8 % (20.0-50.0); MEAN CORPUSCULAR VOLUME 90.1 fL (80.0-94.0); MEAN PLATELET VOLUME 7.7 fl (7.4-10.4); NEUTROPHILS % 84.6 % (40.0-76.0); PLATELET 262 x1000/uL (130-400); RED BLOOD CELL COUNT 5.49 mill/uL (4.7-6.1); RED CELL DISTRIBUTION WIDTH 14.3 % (11.6-14.6)
[2018-09-21 16:33] LABS: CHLORIDE 97 mEq/L (98-107)
[2018-09-21 16:38] LABS: D-DIMER 0.34 mg/L FEU (<0.50); PARTIAL THROMBOPLASTIN TIME 25.7 sec (23.4-31.0); PROTHROMBIN TIME 10.6 sec (9.6-11.0)
[2018-09-21] MEDS ORDERED: ASPIRIN 325MG EC TABLET PO ONE (17:15)
[2018-09-21] MEDS ORDERED: VANCOMYCIN 1 G PREMIX 200 ML IV ONE (17:15)
[2018-09-21] MEDS ORDERED: PIPERACILLIN/TAZ 3.375G PREMIX 50 ML IV ONE (17:15)
[2018-09-21] MEDS ORDERED: SODIUM CHLORIDE 0.9% 1000ML BAG (SEPSIS BOLUS) IV ONE (17:15)
[2018-09-21 18:03] LABS: CLARITY URINE CLEAR (CLEAR); COLOR URINE DARK YELLOW (YELLOW); KETONES URINE NEGATIVE (NEGATIVE); LEUKOCYTE ESTERASE URINE 1+ (NEGATIVE); NITRITE URINE NEGATIVE (NEGATIVE); OCCULT BLOOD URINE NEGATIVE (NEGATIVE); PH URINE 7.5 (4.5-8.0); PROTEIN URINE NEGATIVE (NEGATIVE); SPECIFIC GRAVITY URINE 1.019 (1.005-1.030)
[2018-09-21 18:30] LABS: *AMPHETAMINES SCREEN URINE NEGATIVE (NEGATIVE); *BARBITURATES SCREEN URINE NEGATIVE (NEGATIVE); *BENZODIAZEPINES SCREEN URINE NEGATIVE (NEGATIVE); *COCAINE SCREEN URINE NEGATIVE (NEGATIVE)
[2018-09-21 18:31] LABS: CANNABINOID URINE SCREEN NEGATIVE (NEGATIVE); METHADONE URINE SCREEN NEGATIVE (NEGATIVE); OPIATES URINE SCREEN PRESUMTIVE POSITIVE (NEGATIVE); PHENCYCLIDINE URINE SCREEN NEGATIVE (NEGATIVE)
[2018-09-21] MEDS ORDERED: MORPHINE SULFATE 4 MG/ML CPJ (NOT FOR IM USE) IV ONE (19:15)
[2018-09-21 22:25] VITALS: BP 136/69
[2018-09-21] MEDS ORDERED: CLONIDINE 0.1MG TABLET PO PRN (23:00)
[2018-09-21] MEDS ORDERED: IPRATROPIUM/ALBUTEROL 0.5-3(2.5)MG/3ML NEB INH PRN (23:00)
[2018-09-21] MEDS ORDERED: DEXTROSE 50% WATER 50ML SYRINGE IV PRN (23:00)
[2018-09-21] MEDS ORDERED: MAGNESIUM/ALUMINUM HYDROXIDE/SIMETHICONE 30ML UDC PO PRN (23:00)
[2018-09-21] MEDS ORDERED: GUAIFENESIN 200MG/10ML SUGAR FREE UDC PO PRN (23:00)
[2018-09-21] MEDS ORDERED: POTASSIUM CHLORIDE 20MEQ TABLET SR PO NR (23:00)
[2018-09-21] MEDS ORDERED: ONDANSETRON HCL 4MG/2ML INJ IV PRN (23:00)
[2018-09-21] MEDS ORDERED: DIPHENHYDRAMINE 50MG/ML VIAL IV PRN (23:00)
[2018-09-21] MEDS: TEMAZEPAM 15MG CAPSULE PO PRN (23:51)
[2018-09-22] MEDS ORDERED: SODIUM CHLORIDE 0.9% 500 ML IV NR
[2018-09-22] MEDS: IPRATROPIUM/ALBUTEROL 0.5-3(2.5)MG/3ML NEB HHN SCH ×2 (00:28→16:44)
[2018-09-22 04:00] VITALS: BP 113/64
[2018-09-22] MEDS: ACETAMINOPHEN 325MG TABLET PO PRN ×2 (04:50→19:36)
[2018-09-22 06:47] LABS: CHLORIDE 104 mEq/L (98-107)
[2018-09-22] MEDS: BLOOD SUGAR DIAGNOSTIC STRIP TEST SCH ×4 (07:40→21:00)
[2018-09-22 08:00] VITALS: BP 140/59
[2018-09-22] MEDS: INSULIN LISPRO 100 UNITS/ML SUBCUT SCH ×4 (08:10→21:00)
[2018-09-22] MEDS: ASPIRIN 81MG EC TABLET PO SCH (08:43)
[2018-09-22] MEDS: PIOGLITAZONE 15MG TABLET PO SCH (08:43)
[2018-09-22] MEDS: ENOXAPARIN 30MG/0.3ML SYR SUBCUT SCH ×2 (08:43→21:01)
[2018-09-22] MEDS: LOSARTAN POTASSIUM 100 MG TABLET PO SCH (08:43)
[2018-09-22] MEDS: GLIPIZIDE XL 2.5MG TABLET PO SCH (08:46)
[2018-09-22 12:00] VITALS: BP 111/63
[2018-09-22 16:00] VITALS: BP 100/64
[2018-09-22 20:00] VITALS: BP_SYST 115; BP_SYST 96; BP_DIAS 50; BP_DIAS 72
[2018-09-22] MEDS ORDERED: GABAPENTIN 300MG CAPSULE PO SCH (21:00)
[2018-09-22] MEDS ORDERED: ATORVASTATIN CALCIUM 10MG TABLET PO SCH (21:00)
[2018-09-22] MEDS: TEMAZEPAM 15MG CAPSULE PO PRN (22:31)
[2018-09-23 00:05] VITALS: BP 110/65
[2018-09-23] MEDS: IPRATROPIUM/ALBUTEROL 0.5-3(2.5)MG/3ML NEB HHN SCH ×3 (00:35→17:17)
[2018-09-23 04:00] VITALS: BP 131/74
[2018-09-23 06:41] LABS: EOSINOPHILS % 3.5 % (0.0-5.0); HEMATOCRIT. 41.2 % (42.0-52.0); HEMOGLOBIN. 13.6 g/dL (14.0-18.0); LYMPHOCYTES % 25.1 % (20.0-50.0); MEAN CORPUSCULAR HEMOGLOBIN 30.1 pg (28.0-32.0); MEAN CORPUSCULAR VOLUME 91.2 fL (80.0-94.0); MEAN PLATELET VOLUME 7.9 fl (7.4-10.4); MONOCYTES % 14.8 % (2.0-8.0); NEUTROPHILS % 55.6 % (40.0-76.0); PLATELET 224 x1000/uL (130-400); RED BLOOD CELL COUNT 4.51 mill/uL (4.7-6.1); RED CELL DISTRIBUTION WIDTH 14.7 % (11.6-14.6)
[2018-09-23 07:24] LABS: CHLORIDE 102 mEq/L (98-107)
[2018-09-23] MEDS: BLOOD SUGAR DIAGNOSTIC STRIP TEST SCH ×3 (07:40→17:38)
[2018-09-23 08:00] VITALS: BP 120/69
[2018-09-23] MEDS: INSULIN LISPRO 100 UNITS/ML SUBCUT SCH ×3 (08:10→17:38)
[2018-09-23] MEDS: ENOXAPARIN 30MG/0.3ML SYR SUBCUT SCH (08:44)
[2018-09-23] MEDS: PIOGLITAZONE 15MG TABLET PO SCH (08:44)
[2018-09-23] MEDS: GLIPIZIDE XL 2.5MG TABLET PO SCH (08:44)
[2018-09-23] MEDS: ASPIRIN 81MG EC TABLET PO SCH (08:45)
[2018-09-23] MEDS: LOSARTAN POTASSIUM 100 MG TABLET PO SCH (08:45)
[2018-09-23 12:00] VITALS: BP 120/69
[2018-09-23 16:00] VITALS: BP 103/55
[2018-09-23 17:28] VITALS: BP 103/66
== END 2018-09-23 18:15 | disposition home or self-care (01) | DRG 392 ==
LOC: ER 14:47 → EDBEDREQ 16:52 → 7WST 17:19 → EDBEDREQTM 17:21 → EDBEDREQ 17:21 → ENRESERV 21:35
PROVIDERS: ADMIT Internal Medicine; ATTEND Internal Medicine
DX: K52.9 Noninfective gastroenteritis and colitis, unspecified (principal); I69.351 Hemiplegia and hemiparesis following cerebral infarction affecting right dominant side; Z68.41 Body mass index [BMI] 40.0-44.9, adult; K21.9 Gastro-esophageal reflux disease without esophagitis; E78.5 Hyperlipidemia, unspecified; J44.9 Chronic obstructive pulmonary disease, unspecified; R07.89 Other chest pain; I10 Essential (primary) hypertension; E11.9 Type 2 diabetes mellitus without complications; E78.00 Pure hypercholesterolemia, unspecified; E66.01 Morbid (severe) obesity due to excess calories; Z90.49 Acquired absence of other specified parts of digestive tract; Z82.49 Family history of ischemic heart disease and other diseases of the circulatory system
CPT/HCPCS: 36415; 71045; 74176; 76705; 80048; 80305; 82962; 83036; 83605; 83735; 83880; 84484; 85379; 93005; 93970; 94640; 96361; 96365; 96367; 96375; 97162; 97530; 99285; J1650; J2270; J2405; J2543; J3370; J7030; J7620

== ENCOUNTER 2019-10-20 19:09 | Inpatient (IN) | payer MEDICARE, MEDICAID ==
[~2019-10-20] VITALS: Ht 180.3 cm; Wt 149.7 kg
[~2019-10-20 19:09] MED LIST changes: -ASPI-1393 PO; +ASPI-1497 PO; +OMEP40CA12 PO; -OMEP40CA34 PO
[2019-10-20] MEDS ORDERED: ASPIRIN 325MG EC TABLET PO ONE (20:30)
[2019-10-20 20:37] LABS: BASOPHILS % 1.2 % (0.0-2.0); EOSINOPHILS % 1.7 % (0.0-5.0); HEMATOCRIT. 46.7 % (42.0-52.0); HEMOGLOBIN. 15.6 g/dL (14.0-18.0); LYMPHOCYTES % 28.6 % (20.0-50.0); MEAN CORPUSCULAR HEMOGLOBIN 31.3 pg (28.0-32.0); MEAN CORPUSCULAR VOLUME 93.7 fL (80.0-94.0); MONOCYTES % 9.4 % (2.0-8.0); NEUTROPHILS % 59.1 % (40.0-76.0); RED BLOOD CELL COUNT 4.98 mill/uL (4.7-6.1); RED CELL DISTRIBUTION WIDTH 14.6 % (11.6-14.6)
[2019-10-20 20:40] LABS: CHLORIDE 100 mEq/L (98-107)
[2019-10-20 20:43] LABS: PROTHROMBIN TIME 10.5 sec (9.6-11.0)
[2019-10-20 20:44] LABS: ETHANOL BLOOD < 10 mg/dL
[2019-10-20 20:47] LABS: LDL CHOLESTEROL 57 mg/dL (5-100)
[2019-10-20 20:52] LABS: CLARITY URINE CLEAR (CLEAR); COLOR URINE YELLOW (YELLOW); KETONES URINE NEGATIVE (NEGATIVE); LEUKOCYTE ESTERASE URINE 2+ (NEGATIVE); NITRITE URINE NEGATIVE (NEGATIVE); OCCULT BLOOD URINE NEGATIVE (NEGATIVE); PH URINE 7.5 (4.5-8.0); PROTEIN URINE NEGATIVE (NEGATIVE); SPECIFIC GRAVITY URINE 1.012 (1.005-1.030)
[2019-10-20 20:57] LABS: MEAN PLATELET VOLUME 8.5 fl (7.4-10.4); PLATELET 276 x1000/uL (130-400)
[2019-10-20 21:05] LABS: *AMPHETAMINES SCREEN URINE NEGATIVE (NEGATIVE); *BARBITURATES SCREEN URINE NEGATIVE (NEGATIVE)
[2019-10-20 21:06] LABS: *BENZODIAZEPINES SCREEN URINE NEGATIVE (NEGATIVE); *COCAINE SCREEN URINE NEGATIVE (NEGATIVE); CANNABINOID URINE SCREEN NEGATIVE (NEGATIVE); METHADONE URINE SCREEN NEGATIVE (NEGATIVE); OPIATES URINE SCREEN NEGATIVE (NEGATIVE); PHENCYCLIDINE URINE SCREEN NEGATIVE (NEGATIVE)
[2019-10-20 22:30] VITALS: BP 125/80
[2019-10-20] MEDS ORDERED: DEXTROSE 50% WATER 50ML SYRINGE IV PRN (23:30)
[2019-10-20] MEDS ORDERED: IOHEXOL-350 100 ML BOTTLE ONE (23:47)
[2019-10-21] VITALS: BP 125/80
[2019-10-21] MEDS: HYDROCODONE/ACETAMINOPHEN 5/325MG TABLET PO PRN ×2 (02:41→08:06)
[2019-10-21] MEDS: ZOLPIDEM TARTRATE 5MG TABLET PO PRN ×2 (02:50→21:32)
[2019-10-21 04:00] VITALS: BP 118/75
[2019-10-21] MEDS: BLOOD SUGAR DIAGNOSTIC STRIP TEST SCH ×4 (06:02→20:29)
[2019-10-21] MEDS: INSULIN LISPRO 100 UNITS/ML SUBCUT SCH ×4 (06:02→21:00)
[2019-10-21] MEDS: OMEPRAZOLE 20MG CAPSULE EXTENDED RELEASE PO SCH (06:17)
[2019-10-21] MEDS: GABAPENTIN 300MG CAPSULE PO SCH ×3 (06:18→21:32)
[2019-10-21 07:12] LABS: BASOPHILS % 0.9 % (0.0-2.0); EOSINOPHILS % 2.5 % (0.0-5.0); HEMATOCRIT. 42.5 % (42.0-52.0); HEMOGLOBIN. 14.5 g/dL (14.0-18.0); LYMPHOCYTES % 30.5 % (20.0-50.0); MEAN CORPUSCULAR HEMOGLOBIN 31.8 pg (28.0-32.0); MEAN CORPUSCULAR VOLUME 93.5 fL (80.0-94.0); MONOCYTES % 9.4 % (2.0-8.0); NEUTROPHILS % 56.7 % (40.0-76.0); PLATELET 259 x1000/uL (130-400); RED BLOOD CELL COUNT 4.54 mill/uL (4.7-6.1); RED CELL DISTRIBUTION WIDTH 14.3 % (11.6-14.6)
[2019-10-21 07:32] LABS: CHLORIDE 100 mEq/L (98-107)
[2019-10-21 07:56] LABS: LDL CHOLESTEROL 52 mg/dL (5-100)
[2019-10-21 08:00] VITALS: BP 123/100
[2019-10-21 08:00] LABS: HDL CHOLESTEROL 61 mg/dL (40-59)
[2019-10-21] MEDS: AMLODIPINE 10MG TABLET PO SCH (08:05)
[2019-10-21] MEDS: METOPROLOL TARTRATE 25MG TABLET PO SCH ×2 (08:05→21:32)
[2019-10-21] MEDS ORDERED: ASPIRIN 81MG TABLET PO SCH (09:00)
[2019-10-21] MEDS ORDERED: POTASSIUM CHLORIDE 20MEQ TABLET SR PO SCH (09:15)
[2019-10-21] MEDS ORDERED: CEFTRIAXONE 1 G PREMIX 50 ML IV SCH (09:15)
[2019-10-21 12:00] VITALS: BP 108/50
[2019-10-21] MEDS: CEFTRIAXONE 1,000 MG in DEXTROSE 5% WATER 50 ML IV SCH (12:07)
[2019-10-21 16:00] VITALS: BP 122/68
[2019-10-21] MEDS: RIVAROXABAN 20 MG TABLET PO SCH ×2 (17:00→18:19)
[2019-10-21 20:00] VITALS: BP 120/71
[2019-10-21] MEDS: ATORVASTATIN CALCIUM 40MG TABLET PO SCH (21:32)
[2019-10-22] VITALS: BP 106/73
[2019-10-22 04:00] VITALS: BP 141/80
[2019-10-22] MEDS: BLOOD SUGAR DIAGNOSTIC STRIP TEST SCH ×4 (05:48→21:57)
[2019-10-22] MEDS: OMEPRAZOLE 20MG CAPSULE EXTENDED RELEASE PO SCH (05:49)
[2019-10-22] MEDS: GABAPENTIN 300MG CAPSULE PO SCH ×3 (05:49→21:46)
[2019-10-22] MEDS: INSULIN LISPRO 100 UNITS/ML SUBCUT SCH ×4 (06:01→21:00)
[2019-10-22 06:51] LABS: HEMATOCRIT. 44.9 % (42.0-52.0); HEMOGLOBIN. 14.9 g/dL (14.0-18.0); MEAN CORPUSCULAR VOLUME 93.3 fL (80.0-94.0); MEAN PLATELET VOLUME 8.1 fl (7.4-10.4); MONOCYTES % 10.4 % (2.0-8.0); NEUTROPHILS % 62.6 % (40.0-76.0); PLATELET 260 x1000/uL (130-400); RED BLOOD CELL COUNT 4.81 mill/uL (4.7-6.1); RED CELL DISTRIBUTION WIDTH 14.3 % (11.6-14.6)
[2019-10-22 08:00] VITALS: BP 110/70
[2019-10-22 08:09] LABS: CHLORIDE 101 mEq/L (98-107)
[2019-10-22] MEDS: AMLODIPINE 10MG TABLET PO SCH (08:40)
[2019-10-22] MEDS: METOPROLOL TARTRATE 25MG TABLET PO SCH ×2 (08:41→21:46)
[2019-10-22] MEDS: CEFTRIAXONE 1,000 MG in DEXTROSE 5% WATER 50 ML IV SCH (10:36)
[2019-10-22 11:58] VITALS: BP 117/77
[2019-10-22 16:00] VITALS: BP 136/79
[2019-10-22 20:00] VITALS: BP 112/70
[2019-10-22] MEDS: ATORVASTATIN CALCIUM 40MG TABLET PO SCH (21:46)
[2019-10-22] MEDS: ZOLPIDEM TARTRATE 5MG TABLET PO PRN (21:47)
[2019-10-22] MEDS: POLYVINYL ALCOHOL OPHTH DROPS 15ML LEFTEYE PRN (21:47)
[2019-10-23] VITALS: BP 126/57
[2019-10-23 04:00] VITALS: BP 107/72
[2019-10-23] MEDS: GABAPENTIN 300MG CAPSULE PO SCH ×3 (06:03→22:03)
[2019-10-23] MEDS: OMEPRAZOLE 20MG CAPSULE EXTENDED RELEASE PO SCH (06:03)
[2019-10-23] MEDS: HYDROCODONE/ACETAMINOPHEN 5/325MG TABLET PO PRN ×2 (06:03→22:04)
[2019-10-23] MEDS: BLOOD SUGAR DIAGNOSTIC STRIP TEST SCH ×4 (06:25→21:53)
[2019-10-23] MEDS: INSULIN LISPRO 100 UNITS/ML SUBCUT SCH ×4 (06:25→21:00)
[2019-10-23 08:00] VITALS: BP 100/66
[2019-10-23] MEDS: AMLODIPINE 10MG TABLET PO SCH (08:11)
[2019-10-23] MEDS: METOPROLOL TARTRATE 25MG TABLET PO SCH ×2 (08:11→22:03)
[2019-10-23] MEDS: CEFTRIAXONE 1,000 MG in DEXTROSE 5% WATER 50 ML IV SCH (10:08)
[2019-10-23] MEDS: POLYVINYL ALCOHOL OPHTH DROPS 15ML LEFTEYE PRN ×2 (10:08→16:03)
[2019-10-23 12:00] VITALS: BP 121/78
[2019-10-23 15:33] VITALS: BP 109/67
[2019-10-23] MEDS: RIVAROXABAN 20 MG TABLET PO SCH (16:03)
[2019-10-23 20:00] VITALS: BP 131/85
[2019-10-23] MEDS: ATORVASTATIN CALCIUM 40MG TABLET PO SCH (22:03)
[2019-10-23] MEDS: ZOLPIDEM TARTRATE 5MG TABLET PO PRN (22:04)
[2019-10-24] VITALS: BP 98/71
[2019-10-24 04:00] VITALS: BP 151/88
[2019-10-24] MEDS: GABAPENTIN 300MG CAPSULE PO SCH ×3 (06:05→20:45)
[2019-10-24] MEDS: OMEPRAZOLE 20MG CAPSULE EXTENDED RELEASE PO SCH (06:07)
[2019-10-24] MEDS: HYDROCODONE/ACETAMINOPHEN 5/325MG TABLET PO PRN (06:07)
[2019-10-24] MEDS: INSULIN LISPRO 100 UNITS/ML SUBCUT SCH ×4 (07:03→21:00)
[2019-10-24] MEDS: BLOOD SUGAR DIAGNOSTIC STRIP TEST SCH ×4 (07:03→20:46)
[2019-10-24 08:00] VITALS: BP 96/75
[2019-10-24] MEDS: AMLODIPINE 10MG TABLET PO SCH (09:00)
[2019-10-24] MEDS: METOPROLOL TARTRATE 25MG TABLET PO SCH ×3 (09:00→21:00)
[2019-10-24] MEDS: CEFTRIAXONE 1,000 MG in DEXTROSE 5% WATER 50 ML IV SCH (09:13)
[2019-10-24 12:00] VITALS: BP 122/66
[2019-10-24] MEDS ORDERED: LACTULOSE 20G/30ML UDC PO NR (15:00)
[2019-10-24 16:26] LABS: CHLORIDE 101 mEq/L (98-107)
[2019-10-24] MEDS ORDERED: BISACODYL 10MG SUPP PR PRN (16:30)
[2019-10-24 16:31] LABS: BASOPHILS % 0.6 % (0.0-2.0); EOSINOPHILS % 2.4 % (0.0-5.0); HEMOGLOBIN. 14.5 g/dL (14.0-18.0); LYMPHOCYTES % 26.3 % (20.0-50.0); MEAN CORPUSCULAR HEMOGLOBIN 31.3 pg (28.0-32.0); MEAN CORPUSCULAR VOLUME 93.2 fL (80.0-94.0); MEAN PLATELET VOLUME 8.4 fl (7.4-10.4); MONOCYTES % 13.3 % (2.0-8.0); NEUTROPHILS % 57.4 % (40.0-76.0); PLATELET 260 x1000/uL (130-400); RED BLOOD CELL COUNT 4.61 mill/uL (4.7-6.1); RED CELL DISTRIBUTION WIDTH 14.2 % (11.6-14.6)
[2019-10-24] MEDS ORDERED: SORBITOL 70% SOLN 30ML PO NR (17:00)
[2019-10-24] MEDS: RIVAROXABAN 20 MG TABLET PO SCH (18:34)
[2019-10-24 20:00] VITALS: BP 124/74
[2019-10-24] MEDS: ATORVASTATIN CALCIUM 40MG TABLET PO SCH (20:45)
[2019-10-24] MEDS: ZOLPIDEM TARTRATE 5MG TABLET PO PRN (21:38)
[2019-10-25] VITALS: BP 145/97
[2019-10-25] MEDS: HYDROCODONE/ACETAMINOPHEN 5/325MG TABLET PO PRN (02:24)
[2019-10-25 04:00] VITALS: BP 139/93
[2019-10-25] MEDS: GABAPENTIN 300MG CAPSULE PO SCH (06:10)
[2019-10-25] MEDS: BLOOD SUGAR DIAGNOSTIC STRIP TEST SCH (06:10)
[2019-10-25] MEDS: OMEPRAZOLE 20MG CAPSULE EXTENDED RELEASE PO SCH (06:10)
[2019-10-25] MEDS: INSULIN LISPRO 100 UNITS/ML SUBCUT SCH (06:16)
[2019-10-25 08:00] VITALS: BP 132/79
[2019-10-25] MEDS: AMLODIPINE 10MG TABLET PO SCH (08:43)
[2019-10-25] MEDS: METOPROLOL TARTRATE 25MG TABLET PO SCH (08:44)
[2019-10-25] MEDS: CEFTRIAXONE 1,000 MG in DEXTROSE 5% WATER 50 ML IV SCH (10:43)
== END 2019-10-25 11:53 | disposition home health service (06) | DRG 689 ==
LOC: ER 19:09 → 8WST 21:26 → ENRESERV 21:55
PROVIDERS: ADMIT Internal Medicine; ATTEND Internal Medicine
DX: N39.0 Urinary tract infection, site not specified (principal); G92 Toxic encephalopathy; E44.1 Mild protein-calorie malnutrition; J98.11 Atelectasis; Z68.42 Body mass index [BMI] 45.0-49.9, adult; I69.951 Hemiplegia and hemiparesis following unspecified cerebrovascular disease affecting right dominant side; R29.810 Facial weakness; R53.1 Weakness; F48.2 Pseudobulbar affect; R41.82 Altered mental status, unspecified; E66.01 Morbid (severe) obesity due to excess calories; E11.9 Type 2 diabetes mellitus without complications; E78.5 Hyperlipidemia, unspecified; I10 Essential (primary) hypertension; E78.00 Pure hypercholesterolemia, unspecified; Z87.11 Personal history of peptic ulcer disease; Z90.49 Acquired absence of other specified parts of digestive tract; Z79.82 Long term (current) use of aspirin; Z79.899 Other long term (current) drug therapy
CPT/HCPCS: 36415; 71045; 80048; 80053; 80061; 80305; 80320; 81003; 82962; 83036; 83721; 84484; 85025; 93005; 93306; 93880; 95816; 97116; 97162; 97166; 97530; 99285; J0696; J1815; J7060; Q9967; G0480

== ENCOUNTER 2020-01-04 15:24 | Inpatient (IN) | payer MEDICARE, MEDICAID ==
[~2020-01-04] VITALS: Ht 177.8 cm; Wt 63.5 kg
[2020-01-04] MEDS ORDERED: ONDANSETRON HCL 4MG/2ML INJ IV STA ×2 (16:23→17:47)
[2020-01-04] MEDS ORDERED: FAMOTIDINE 20MG/2ML VIAL IV STA (16:23)
[2020-01-04] MEDS ORDERED: SODIUM CHLORIDE 0.9% 1,000 ML IV ONE (16:30)
[2020-01-04 17:25] LABS: BASOPHILS % 0.4 % (0.0-2.0); EOSINOPHILS % 0.4 % (0.0-5.0); HEMATOCRIT. 49.6 % (42.0-52.0); HEMOGLOBIN. 16.8 g/dL (14.0-18.0); LYMPHOCYTES % 9.2 % (20.0-50.0); MEAN CORPUSCULAR HEMOGLOBIN 31.7 pg (28.0-32.0); MEAN CORPUSCULAR VOLUME 93.6 fL (80.0-94.0); MEAN PLATELET VOLUME 8.3 fl (7.4-10.4); MONOCYTES % 3.8 % (2.0-8.0); NEUTROPHILS % 86.2 % (40.0-76.0); PLATELET 425 x1000/uL (130-400); RED CELL DISTRIBUTION WIDTH 13.8 % (11.6-14.6)
[2020-01-04 17:30] LABS: CHLORIDE 103 mEq/L (98-107)
[2020-01-04 17:34] LABS: ETHANOL BLOOD < 10 mg/dL
[2020-01-04 17:35] LABS: PROTHROMBIN TIME 10.4 sec (9.6-11.0)
[2020-01-04] MEDS ORDERED: MORPHINE SULFATE 4 MG/ML CPJ (NOT FOR IM USE) IV STA (17:47)
[2020-01-04] MEDS ORDERED: MORPHINE SULFATE 4 MG/ML CPJ (NOT FOR IM USE) IV ONE (18:12)
[2020-01-04 19:43] LABS: CLARITY URINE CLEAR (CLEAR); COLOR URINE YELLOW (YELLOW); KETONES URINE NEGATIVE (NEGATIVE); LEUKOCYTE ESTERASE URINE TRACE (NEGATIVE); NITRITE URINE NEGATIVE (NEGATIVE); OCCULT BLOOD URINE NEGATIVE (NEGATIVE); PH URINE 5.5 (4.5-8.0); PROTEIN URINE NEGATIVE (NEGATIVE); SPECIFIC GRAVITY URINE 1.018 (1.005-1.030); UROBILINOGEN URINE 0.2 E.U./dL (0.2-1.0)
[2020-01-04 20:02] LABS: *AMPHETAMINES SCREEN URINE NEGATIVE (NEGATIVE); *BARBITURATES SCREEN URINE NEGATIVE (NEGATIVE); CANNABINOID URINE SCREEN NEGATIVE (NEGATIVE); OPIATES URINE SCREEN PRESUMTIVE POSITIVE (NEGATIVE); PHENCYCLIDINE URINE SCREEN NEGATIVE (NEGATIVE)
[2020-01-04 20:03] LABS: *BENZODIAZEPINES SCREEN URINE NEGATIVE (NEGATIVE); *COCAINE SCREEN URINE NEGATIVE (NEGATIVE); METHADONE URINE SCREEN NEGATIVE (NEGATIVE)
[2020-01-04] MEDS ORDERED: IOHEXOL-300 100 ML BOTTLE ONE (23:13)
[2020-01-05] VITALS (7 sets, daily range): BP systolic 115–158; BP diastolic 73–94
[2020-01-05] MEDS: MORPHINE SULFATE 2 MG/ML CPJ (NOT FOR IM USE) IV PRN ×4 (01:24→14:21)
[2020-01-05 06:00] LABS: BASOPHILS % 0.9 % (0.0-2.0); EOSINOPHILS % 1.1 % (0.0-5.0); HEMATOCRIT. 40.4 % (42.0-52.0); HEMOGLOBIN. 13.5 g/dL (14.0-18.0); LYMPHOCYTES % 19.1 % (20.0-50.0); MEAN CORPUSCULAR HEMOGLOBIN 31.2 pg (28.0-32.0); MEAN CORPUSCULAR VOLUME 93.7 fL (80.0-94.0); MONOCYTES % 8.2 % (2.0-8.0); NEUTROPHILS % 70.7 % (40.0-76.0); PLATELET 371 x1000/uL (130-400); RED BLOOD CELL COUNT 4.31 mill/uL (4.7-6.1); RED CELL DISTRIBUTION WIDTH 14.2 % (11.6-14.6)
[2020-01-05 06:03] LABS: CHLORIDE 106 mEq/L (98-107)
[2020-01-05] MEDS: DEXT 5%/0.45% NACL KCL 20MEQ/L 1,000 ML IV SCH ×2 (06:05→18:21)
[2020-01-05 06:06] LABS: AMYLASE 66 IU/L (25-115)
[2020-01-05] MEDS ORDERED: ONDANSETRON HCL 4MG/2ML INJ IV PRN (08:30)
[2020-01-05] MEDS: PANTOPRAZOLE SODIUM 40 MG/VIAL IV SCH (09:48)
[2020-01-05] MEDS: GABAPENTIN 300MG CAPSULE PO SCH ×2 (14:19→22:33)
[2020-01-05] MEDS: ASPIRIN 81MG TABLET PO SCH (14:19)
[2020-01-05] MEDS: DILTIAZEM HCL 60MG TABLET PO SCH ×2 (14:20→20:55)
[2020-01-05] MEDS ORDERED: BISACODYL 10MG SUPP PR NR (17:00)
[2020-01-05] MEDS: RIVAROXABAN 20 MG TABLET PO SCH (18:12)
[2020-01-05] MEDS: METOPROLOL TARTRATE 100MG TABLET PO SCH (21:01)
[2020-01-05] MEDS: ATORVASTATIN CALCIUM 10MG TABLET PO SCH (21:01)
[2020-01-05] MEDS: ZOLPIDEM TARTRATE 5MG TABLET PO PRN (21:01)
[2020-01-05] MEDS: CLONIDINE 0.1MG TABLET PO SCH (22:33)
[2020-01-06] VITALS: BP 129/81
[2020-01-06] MEDS: DEXT 5%/0.45% NACL KCL 20MEQ/L 1,000 ML IV SCH ×2 (02:08→17:21)
[2020-01-06 04:00] VITALS: BP 128/77
[2020-01-06] MEDS: GABAPENTIN 300MG CAPSULE PO SCH ×3 (06:00→21:39)
[2020-01-06] MEDS: GLIPIZIDE 5MG TABLET PO SCH (06:33)
[2020-01-06 08:00] VITALS: BP 125/78
[2020-01-06 08:27] LABS: EOSINOPHILS % 3.1 % (0.0-5.0); HEMATOCRIT. 42.8 % (42.0-52.0); HEMOGLOBIN. 14.2 g/dL (14.0-18.0); LYMPHOCYTES % 18.9 % (20.0-50.0); MEAN CORPUSCULAR HEMOGLOBIN 31.4 pg (28.0-32.0); MEAN CORPUSCULAR VOLUME 94.4 fL (80.0-94.0); MEAN PLATELET VOLUME 7.7 fl (7.4-10.4); PLATELET 350 x1000/uL (130-400); RED BLOOD CELL COUNT 4.53 mill/uL (4.7-6.1); RED CELL DISTRIBUTION WIDTH 14.2 % (11.6-14.6)
[2020-01-06 08:37] LABS: CHLORIDE 103 mEq/L (98-107)
[2020-01-06] MEDS ORDERED: BISACODYL 10MG SUPP PR NR (09:00)
[2020-01-06] MEDS: FUROSEMIDE 20MG TABLET PO SCH (09:11)
[2020-01-06] MEDS: DILTIAZEM HCL 60MG TABLET PO SCH ×2 (09:13→21:00)
[2020-01-06] MEDS: CLONIDINE 0.1MG TABLET PO SCH ×4 (09:13→21:00)
[2020-01-06] MEDS: ASPIRIN 81MG TABLET PO SCH (09:14)
[2020-01-06] MEDS: PIOGLITAZONE 15MG TABLET PO SCH (09:15)
[2020-01-06] MEDS: MORPHINE SULFATE 2 MG/ML CPJ (NOT FOR IM USE) IV PRN ×2 (09:15→16:49)
[2020-01-06] MEDS: METOPROLOL TARTRATE 100MG TABLET PO SCH ×2 (09:15→21:00)
[2020-01-06] MEDS: PANTOPRAZOLE SODIUM 40 MG/VIAL IV SCH (09:15)
[2020-01-06 12:00] VITALS: BP 132/81
[2020-01-06 16:00] VITALS: BP 129/83
[2020-01-06] MEDS: RIVAROXABAN 20 MG TABLET PO SCH (16:48)
[2020-01-06 20:00] VITALS: BP 100/66
[2020-01-06] MEDS: ZOLPIDEM TARTRATE 5MG TABLET PO PRN (21:39)
[2020-01-06] MEDS: ATORVASTATIN CALCIUM 10MG TABLET PO SCH (21:39)
[2020-01-07] VITALS: BP 116/61
[2020-01-07] MEDS: DEXT 5%/0.45% NACL KCL 20MEQ/L 1,000 ML IV SCH ×3 (02:56→18:29)
[2020-01-07] MEDS: MORPHINE SULFATE 2 MG/ML CPJ (NOT FOR IM USE) IV PRN ×3 (03:47→20:36)
[2020-01-07 04:00] VITALS: BP 131/77
[2020-01-07] MEDS: GABAPENTIN 300MG CAPSULE PO SCH ×3 (06:51→22:05)
[2020-01-07] MEDS: GLIPIZIDE 5MG TABLET PO SCH (06:54)
[2020-01-07 08:00] VITALS: BP 109/65
[2020-01-07] MEDS: ASPIRIN 81MG TABLET PO SCH (08:58)
[2020-01-07] MEDS: PIOGLITAZONE 15MG TABLET PO SCH (08:59)
[2020-01-07] MEDS: FUROSEMIDE 20MG TABLET PO SCH (08:59)
[2020-01-07] MEDS: CLONIDINE 0.1MG TABLET PO SCH ×4 (09:00→20:27)
[2020-01-07] MEDS: PANTOPRAZOLE SODIUM 40 MG/VIAL IV SCH (09:00)
[2020-01-07] MEDS: METOPROLOL TARTRATE 100MG TABLET PO SCH ×2 (09:00→20:28)
[2020-01-07] MEDS: DILTIAZEM HCL 60MG TABLET PO SCH ×2 (09:00→20:26)
[2020-01-07 12:00] VITALS: BP 119/86
[2020-01-07] MEDS ORDERED: SORBITOL 70% SOLN 30ML PO NR (12:15)
[2020-01-07 16:00] VITALS: BP 90/46
[2020-01-07] MEDS: RIVAROXABAN 20 MG TABLET PO SCH (18:29)
[2020-01-07 20:00] VITALS: BP 109/69
[2020-01-07] MEDS: ATORVASTATIN CALCIUM 10MG TABLET PO SCH (20:36)
[2020-01-07] MEDS: ZOLPIDEM TARTRATE 5MG TABLET PO PRN (22:05)
[2020-01-08] VITALS: BP 100/56
[2020-01-08] MEDS: DEXT 5%/0.45% NACL KCL 20MEQ/L 1,000 ML IV SCH ×2 (02:33→10:06)
[2020-01-08 04:00] VITALS: BP 108/75
[2020-01-08] MEDS: MORPHINE SULFATE 2 MG/ML CPJ (NOT FOR IM USE) IV PRN ×2 (04:28→10:16)
[2020-01-08] MEDS: GLIPIZIDE 5MG TABLET PO SCH (06:43)
[2020-01-08] MEDS: GABAPENTIN 300MG CAPSULE PO SCH (06:43)
[2020-01-08 08:00] VITALS: BP 117/78
[2020-01-08] MEDS: ASPIRIN 81MG TABLET PO SCH (09:45)
[2020-01-08] MEDS: PANTOPRAZOLE SODIUM 40 MG/VIAL IV SCH (09:45)
[2020-01-08] MEDS: PIOGLITAZONE 15MG TABLET PO SCH (09:45)
[2020-01-08] MEDS: CLONIDINE 0.1MG TABLET PO SCH ×2 (09:46→12:56)
[2020-01-08] MEDS: DILTIAZEM HCL 60MG TABLET PO SCH (09:46)
[2020-01-08] MEDS: FUROSEMIDE 20MG TABLET PO SCH (09:46)
[2020-01-08] MEDS: METOPROLOL TARTRATE 100MG TABLET PO SCH (09:46)
[2020-01-08 12:00] VITALS: BP 97/64
[2020-01-08 13:09] VITALS: BP 97/64
== END 2020-01-08 14:55 | disposition home or self-care (01) | DRG 388 ==
LOC: ER 15:24 → 6EST 21:53 → EDBEDREQSVC 21:55 → EDBEDREQ 21:58 → EDBEDREQTM 21:58 → ENRESERV 22:41
PROVIDERS: ADMIT Internal Medicine; ATTEND Internal Medicine
DX: K56.7 Ileus, unspecified (principal); N17.0 Acute kidney failure with tubular necrosis; K52.9 Noninfective gastroenteritis and colitis, unspecified; I10 Essential (primary) hypertension; E78.5 Hyperlipidemia, unspecified; E11.9 Type 2 diabetes mellitus without complications; E78.00 Pure hypercholesterolemia, unspecified; I48.91 Unspecified atrial fibrillation; Z86.73 Personal history of transient ischemic attack (TIA), and cerebral infarction without residual deficits; Z90.49 Acquired absence of other specified parts of digestive tract; Z79.01 Long term (current) use of anticoagulants
CPT/HCPCS: 36415; 74018; 74177; 80048; 80053; 80305; 80320; 81003; 82150; 82962; 85025; 93005; 99285; C9113; J2270; J2405; J3490; J7030; Q9967; G0480

== ENCOUNTER 2022-03-21 06:37 | Inpatient (IN) | payer MEDICARE, MEDICAID ==
[~2022-03-21] VITALS: Ht 188 cm; Wt 170.6 kg
[~2022-03-21 06:37] MED LIST changes: -GABA-531 PO; +GABA-532 PO; -OMEP40CA12 PO; +OMEP40CA20 PO
[2022-03-21] MEDS ORDERED: MORPHINE SULFATE 4 MG/ML CPJ (NOT FOR IM USE) IV STA (06:55)
[2022-03-21] MEDS ORDERED: ONDANSETRON HCL 4MG/2ML INJ IV STA (06:55)
[2022-03-21 07:33] LABS: BASOPHILS % 0.5 % (0.0-2.0); EOSINOPHILS % 1.4 % (0.0-5.0); HEMATOCRIT. 42.1 % (42.0-52.0); MEAN CORPUSCULAR HEMOGLOBIN 31.4 pg (28.0-32.0); MEAN CORPUSCULAR VOLUME 94.3 fL (80.0-94.0); MEAN PLATELET VOLUME 7.5 fl (7.4-10.4); MONOCYTES % 8.2 % (2.0-8.0); NEUTROPHILS % 76.9 % (40.0-76.0); PLATELET 214 x1000/uL (130-400); RED BLOOD CELL COUNT 4.47 mill/uL (4.7-6.1); RED CELL DISTRIBUTION WIDTH 13.6 % (11.6-14.6)
[2022-03-21 07:52] LABS: CHLORIDE 106 mEq/L (98-107)
[2022-03-21] MEDS ORDERED: MORPHINE SULFATE 10 MG/ML CPJ IV ONE (09:15)
[2022-03-21] MEDS ORDERED: GUAIFENESIN 200MG/10ML SUGAR FREE UDC PO PRN (11:45)
[2022-03-21] MEDS ORDERED: DIPHENHYDRAMINE 50MG/ML VIAL IV PRN (11:45)
[2022-03-21] MEDS ORDERED: ONDANSETRON HCL 4MG/2ML INJ IV PRN (11:45)
[2022-03-21] MEDS ORDERED: IPRATROPIUM/ALBUTEROL 0.5-3(2.5)MG/3ML NEB NEB PRN (11:45)
[2022-03-21] MEDS ORDERED: ACETAMINOPHEN 325MG TABLET PO PRN (11:45)
[2022-03-21] MEDS ORDERED: CLONIDINE 0.1MG TABLET PO PRN (11:45)
[2022-03-21] MEDS ORDERED: NA PHOS,M-B/NA PHOS,DI-BA ENEMA 118ML PR PRN (11:45)
[2022-03-21] MEDS ORDERED: DOCUSATE SODIUM 100MG CAPSULE PO PRN (11:45)
[2022-03-21] MEDS ORDERED: MAGNESIUM/ALUMINUM HYDROXIDE/SIMETHICONE 30ML UDC PO PRN (11:45)
[2022-03-21] MEDS ORDERED: NALOXONE HCL 0.4MG/ML VIAL IV PRN (12:00)
[2022-03-21] MEDS: ENOXAPARIN 30MG/0.3ML SYR SUBCUT SCH ×2 (13:24→22:47)
[2022-03-21] MEDS: SODIUM CHLORIDE 0.45% 1,000 ML IV SCH (13:24)
[2022-03-21] MEDS: MORPHINE SULFATE 2 MG/ML CPJ (NOT FOR IM USE) IV PRN (14:54)
[2022-03-21 20:00] VITALS: BP 106/58
[2022-03-21 20:15] VITALS: BP 106/58
[2022-03-21] MEDS: LORAZEPAM 2MG/ML CPJ IV PRN (22:48)
[2022-03-22] VITALS: BP 129/79
[2022-03-22] MEDS: MORPHINE SULFATE 2 MG/ML CPJ (NOT FOR IM USE) IV PRN ×2 (02:42→07:32)
[2022-03-22 04:00] VITALS: BP 114/74
[2022-03-22 06:53] LABS: BASOPHILS % 0.5 % (0.0-2.0); EOSINOPHILS % 1.3 % (0.0-5.0); HEMATOCRIT. 36.9 % (42.0-52.0); HEMOGLOBIN. 12.4 g/dL (14.0-18.0); LYMPHOCYTES % 13.5 % (20.0-50.0); MEAN CORPUSCULAR HEMOGLOBIN 31.4 pg (28.0-32.0); MEAN CORPUSCULAR VOLUME 93.5 fL (80.0-94.0); MEAN PLATELET VOLUME 7.7 fl (7.4-10.4); MONOCYTES % 8.6 % (2.0-8.0); NEUTROPHILS % 76.1 % (40.0-76.0); PLATELET 214 x1000/uL (130-400); RED BLOOD CELL COUNT 3.95 mill/uL (4.7-6.1); RED CELL DISTRIBUTION WIDTH 13.9 % (11.6-14.6)
[2022-03-22] MEDS: SODIUM CHLORIDE 0.45% 1,000 ML IV SCH (07:45)
[2022-03-22 08:00] VITALS: BP 112/73
[2022-03-22] MEDS ORDERED: DEXTROSE 50% WATER 50ML SYRINGE IV PRN (09:00)
[2022-03-22] MEDS: HYDROCODONE/ACETAMINOPHEN 5/325MG TABLET PO PRN ×2 (10:13→20:37)
[2022-03-22 10:28] LABS: CHLORIDE 104 mEq/L (98-107)
[2022-03-22 10:43] LABS: D-DIMER 4.61 mg/L FEU (<0.50); HDL CHOLESTEROL 56 mg/dL (40-59); INR 1.1; LDL CHOLESTEROL 40 mg/dL (5-100); PROTHROMBIN TIME 11.6 sec (9.6-11.0)
[2022-03-22 11:25] LABS: T4 FREE 1.4 ng/dL (0.76-1.46)
[2022-03-22 12:00] VITALS: BP 122/74
[2022-03-22] MEDS ORDERED: POLYMYXIN B SULFATE 500000 UNITS/VIAL ONE ×2 (13:40→13:41)
[2022-03-22] MEDS ORDERED: LIDOCAINE HCL 1%/EPI 1:200,000 30 ML VIAL ONE (13:40)
[2022-03-22] MEDS ORDERED: LIDOCAINE HCL 1% 20ML VIAL (Pyxis) INJ ONE (13:41)
[2022-03-22] MEDS ORDERED: VANCOMYCIN HCL 1 GM/VIAL ONE (13:41)
[2022-03-22] MEDS ORDERED: ROCURONIUM BROMIDE 10MG/ML VIAL 5ML IV ONE (14:18)
[2022-03-22] MEDS ORDERED: LIDOCAINE HCL 1% 10 MG/ML 10ML VIAL ONE (14:18)
[2022-03-22] MEDS ORDERED: SUCCINYLCHOLINE CHLORIDE 200MG/10ML IV ONE (14:18)
[2022-03-22] MEDS ORDERED: ONDANSETRON HCL 4MG/2ML INJ ONE (14:18)
[2022-03-22] MEDS ORDERED: DEXAMETHASONE 4MG/ML 1ML VIAL ONE (14:18)
[2022-03-22] MEDS ORDERED: PROPOFOL 200MG/20ML VIAL IV ONE (14:19)
[2022-03-22] MEDS ORDERED: GLYCOPYRROLATE 0.2 MG/ML 2ML VIAL ONE ×3 (14:19→15:45)
[2022-03-22] MEDS ORDERED: NEOSTIGMINE METHYLSULFATE 1MG/ML 10 ML VIAL ONE ×2 (14:19→15:44)
[2022-03-22] MEDS ORDERED: MIDAZOLAM HCL 2 MG/2 ML VIAL ONE (14:20)
[2022-03-22] MEDS ORDERED: FENTANYL CITRATE/PF 50MCG/ML 2ML VIAL ONE (14:20)
[2022-03-22] MEDS ORDERED: HYDROMORPHONE HCL/PF 2MG/ML CPJ ONE (14:48)
[2022-03-22] MEDS ORDERED: LABETALOL 5MG/ML SYR 20 MG/4 ML SYRINGE IV PRN (15:15)
[2022-03-22] MEDS ORDERED: ONDANSETRON HCL 4MG/2ML INJ IV PRN (15:15)
[2022-03-22] MEDS ORDERED: HYDROMORPHONE HCL/PF 2MG/ML CPJ IV PRN (15:15)
[2022-03-22] MEDS ORDERED: MEPERIDINE HCL/PF 25MG/ML CPJ IV PRN (15:15)
[2022-03-22] MEDS: BLOOD SUGAR DIAGNOSTIC STRIP TEST SCH ×2 (17:20→20:42)
[2022-03-22] MEDS: INSULIN LISPRO 100 UNITS/ML SUBCUT SCH ×2 (17:50→20:55)
[2022-03-22 20:00] VITALS: BP 123/72
[2022-03-22] MEDS: FAMOTIDINE 20MG TABLET PO SCH (20:36)
[2022-03-22 21:57] LABS: CHLORIDE 99 mEq/L (98-107)
[2022-03-22 22:19] LABS: CREATINE KINASE 1051 IU/L (39-308); CREATINE KINASE MB FRACTION 3.2 ng/mL (0.5-3.6)
[2022-03-22] MEDS: CEFAZOLIN 2,000 MG in DEXT 5% WATER 100 ML IV SCH (23:35)
[2022-03-23] MEDS: MORPHINE SULFATE 2 MG/ML CPJ (NOT FOR IM USE) IV PRN ×2 (02:10→18:49)
[2022-03-23] MEDS: SODIUM CHLORIDE 0.45% 1,000 ML IV SCH ×2 (03:45→23:13)
[2022-03-23] MEDS ORDERED: REGADENOSON 0.4 MG/5 ML IV NR (07:15)
[2022-03-23] MEDS: BLOOD SUGAR DIAGNOSTIC STRIP TEST SCH ×4 (07:20→20:58)
[2022-03-23 07:30] LABS: HEMATOCRIT. 35.1 % (42.0-52.0); MEAN CORPUSCULAR HEMOGLOBIN 31.4 pg (28.0-32.0); MEAN PLATELET VOLUME 7.6 fl (7.4-10.4); PLATELET 217 x1000/uL (130-400); RED BLOOD CELL COUNT 3.81 mill/uL (4.7-6.1); RED CELL DISTRIBUTION WIDTH 13.3 % (11.6-14.6)
[2022-03-23] MEDS: INSULIN LISPRO 100 UNITS/ML SUBCUT SCH ×4 (07:50→21:00)
[2022-03-23 07:55] LABS: CHLORIDE 99 mEq/L (98-107)
[2022-03-23 08:00] VITALS: BP 120/66
[2022-03-23 08:05] LABS: CREATINE KINASE 754 IU/L (39-308); CREATINE KINASE MB FRACTION 2.4 ng/mL (0.5-3.6)
[2022-03-23] MEDS: FAMOTIDINE 20MG TABLET PO SCH ×2 (09:06→20:58)
[2022-03-23] MEDS: HYDROCODONE/ACETAMINOPHEN 5/325MG TABLET PO PRN ×2 (09:21→20:58)
[2022-03-23] MEDS: CEFAZOLIN 2,000 MG in DEXT 5% WATER 100 ML IV SCH ×3 (09:22→23:10)
[2022-03-23 12:00] VITALS: BP 127/73
[2022-03-23 16:00] VITALS: BP 116/72
[2022-03-23 16:53] LABS: PLATELET ESTIMATE NORMAL
[2022-03-23] MEDS: ENOXAPARIN 40MG/0.4ML SYR SUBCUT SCH ×2 (18:48→20:58)
[2022-03-23 20:00] VITALS: BP 100/51
[2022-03-24] VITALS: BP 126/86
[2022-03-24] MEDS: LORAZEPAM 2MG/ML CPJ IV PRN (00:14)
[2022-03-24 04:00] VITALS: BP 138/98
[2022-03-24] MEDS: BLOOD SUGAR DIAGNOSTIC STRIP TEST SCH ×4 (06:54→21:28)
[2022-03-24 07:01] LABS: BASOPHILS % 0.1 % (0.0-2.0); EOSINOPHILS % 0.4 % (0.0-5.0); HEMATOCRIT. 34.4 % (42.0-52.0); HEMOGLOBIN. 11.6 g/dL (14.0-18.0); MEAN CORPUSCULAR HEMOGLOBIN 31.2 pg (28.0-32.0); MEAN CORPUSCULAR VOLUME 92.7 fL (80.0-94.0); MEAN PLATELET VOLUME 7.9 fl (7.4-10.4); MONOCYTES % 10.8 % (2.0-8.0); NEUTROPHILS % 79.7 % (40.0-76.0); PLATELET 209 x1000/uL (130-400); RED BLOOD CELL COUNT 3.71 mill/uL (4.7-6.1); RED CELL DISTRIBUTION WIDTH 13.5 % (11.6-14.6)
[2022-03-24 07:18] LABS: CHLORIDE 104 mEq/L (98-107)
[2022-03-24] MEDS: INSULIN LISPRO 100 UNITS/ML SUBCUT SCH ×4 (07:50→21:00)
[2022-03-24 08:00] VITALS: BP 111/72
[2022-03-24] MEDS: FAMOTIDINE 20MG TABLET PO SCH ×2 (09:26→21:28)
[2022-03-24] MEDS: ENOXAPARIN 40MG/0.4ML SYR SUBCUT SCH ×2 (09:26→21:28)
[2022-03-24] MEDS: CEFAZOLIN 2,000 MG in DEXT 5% WATER 100 ML IV SCH (09:26)
[2022-03-24] MEDS: HYDROCODONE/ACETAMINOPHEN 5/325MG TABLET PO PRN (10:00)
[2022-03-24 12:00] VITALS: BP 116/73
[2022-03-24 16:00] VITALS: BP 128/89
[2022-03-24 20:00] VITALS: BP 120/86
[2022-03-25] VITALS: BP 123/69
[2022-03-25 04:00] VITALS: BP 126/76
[2022-03-25] MEDS: INSULIN LISPRO 100 UNITS/ML SUBCUT SCH ×4 (07:50→21:00)
[2022-03-25] MEDS: BLOOD SUGAR DIAGNOSTIC STRIP TEST SCH ×4 (07:56→21:34)
[2022-03-25 08:00] VITALS: BP 145/88
[2022-03-25] MEDS: FAMOTIDINE 20MG TABLET PO SCH ×2 (08:57→22:02)
[2022-03-25] MEDS: ENOXAPARIN 40MG/0.4ML SYR SUBCUT SCH ×2 (08:58→20:40)
[2022-03-25] MEDS: HYDROCODONE/ACETAMINOPHEN 5/325MG TABLET PO PRN (09:03)
[2022-03-25 12:00] VITALS: BP 131/74
[2022-03-25 16:00] VITALS: BP 114/75
[2022-03-25 20:00] VITALS: BP 196/100
[2022-03-25] MEDS: MORPHINE SULFATE 2 MG/ML CPJ (NOT FOR IM USE) IV PRN (22:34)
[2022-03-26] VITALS: BP 140/74
[2022-03-26] MEDS: MORPHINE SULFATE 2 MG/ML CPJ (NOT FOR IM USE) IV PRN (03:57)
[2022-03-26] MEDS: BLOOD SUGAR DIAGNOSTIC STRIP TEST SCH (06:42)
[2022-03-26] MEDS: INSULIN LISPRO 100 UNITS/ML SUBCUT SCH (07:50)
[2022-03-26 08:00] VITALS: BP 130/78
[2022-03-26] MEDS: FAMOTIDINE 20MG TABLET PO SCH (08:39)
[2022-03-26] MEDS: ENOXAPARIN 40MG/0.4ML SYR SUBCUT SCH (08:39)
[2022-03-26] MEDS: HYDROCODONE/ACETAMINOPHEN 5/325MG TABLET PO PRN (08:49)
[2022-03-26 09:09] LABS: BASOPHILS % 0.6 % (0.0-2.0); EOSINOPHILS % 2.5 % (0.0-5.0); HEMATOCRIT. 35.9 % (42.0-52.0); LYMPHOCYTES % 16.9 % (20.0-50.0); MEAN CORPUSCULAR HEMOGLOBIN 31.3 pg (28.0-32.0); MEAN CORPUSCULAR VOLUME 93.5 fL (80.0-94.0); MEAN PLATELET VOLUME 8.3 fl (7.4-10.4); MONOCYTES % 9.4 % (2.0-8.0); NEUTROPHILS % 70.6 % (40.0-76.0); PLATELET 200 x1000/uL (130-400); RED BLOOD CELL COUNT 3.84 mill/uL (4.7-6.1); RED CELL DISTRIBUTION WIDTH 13.5 % (11.6-14.6)
[2022-03-26 09:21] LABS: CHLORIDE 106 mEq/L (98-107)
[2022-03-26 09:48] VITALS: BP 130/78
== END 2022-03-26 11:23 | disposition home health service (06) | DRG 493 ==
LOC: ER 07:54 → EDBEDREQ 10:58 → 6EST 11:01 → EDBEDREQTM 11:06 → EDBEDREQ 11:06 → ENRESERV 19:14
PROVIDERS: ADMIT Internal Medicine; ATTEND Internal Medicine
PROC: 0QSG04Z Reposition Right Tibia with Internal Fixation Device, Open Approach (ICD-10-PCS; principal; 2022-03-22)
DX: S82.891A Other fracture of right lower leg, initial encounter for closed fracture (principal); E87.1 Hypo-osmolality and hyponatremia; Z68.42 Body mass index [BMI] 45.0-49.9, adult; I11.0 Hypertensive heart disease with heart failure; I50.9 Heart failure, unspecified; E66.01 Morbid (severe) obesity due to excess calories; E78.00 Pure hypercholesterolemia, unspecified; I25.10 Atherosclerotic heart disease of native coronary artery without angina pectoris; E11.40 Type 2 diabetes mellitus with diabetic neuropathy, unspecified; G89.29 Other chronic pain; R41.89 Other symptoms and signs involving cognitive functions and awareness; F17.200 Nicotine dependence, unspecified, uncomplicated; Z79.899 Other long term (current) drug therapy; Z79.01 Long term (current) use of anticoagulants; Z79.82 Long term (current) use of aspirin; Z79.84 Long term (current) use of oral hypoglycemic drugs; Z90.49 Acquired absence of other specified parts of digestive tract; W18.30XA Fall on same level, unspecified, initial encounter; Y93.89 Activity, other specified; Y92.009 Unspecified place in unspecified non-institutional (private) residence as the place of occurrence of the external cause; Y99.8 Other external cause status
CPT/HCPCS: 36415; 73590; 73600; 76000; 76700; 80048; 80053; 80061; 82550; 82553; 82962; 83036; 83880; 84439; 84443; 84484; 85025; 85379; 93005; 93306; 97162; 97530; 99285; J0330; J0690; J1100; J1170; J1650; J1815; J2060; J2250; J2270; J2405; J2704; J2710; J2785; J3010; J3370; J3490; J7060; C1713

== ENCOUNTER 2023-11-26 17:48 | Inpatient (IN) | payer MEDICARE, MEDICAID ==
[~2023-11-26] VITALS: Ht 190.5 cm; Wt 127.5 kg
[~2023-11-26 17:48] MED LIST changes: +ASPI-1406 PO; -ASPI-1497 PO; -ATOR10TA PO; +CHOL-36 PO; +CLOP-31 PO; -DEXT15DR5 EACHEYE; -DILT60TA35 PO; +FAMO20TA8 PO; -FURO20TA4 PO; -GLIP5TAB12 PO; +HYDR25TA PO; +LIP40 PO; +LOSA100T33 PO; +MEMA5TAB7 MT; -METO100T16 PO; -OMEP40CA20 PO; -PIOG30TA10 PO; +POTA-204 PO; -ZOLP10TA2 PO
[2023-11-26 17:50] VITALS: O2SAT 96
[2023-11-26] MEDS: SODIUM CHLORIDE 0.9% 1,000 ML IV ONE (18:32)
[2023-11-26 18:43] LABS: HEMATOCRIT. 27.5 % (42.0-52.0); MEAN CORPUSCULAR HEMOGLOBIN 28.6 pg (28.0-32.0); MEAN CORPUSCULAR HGB CONC 32.7 g/dL (31.0-37.0); MEAN CORPUSCULAR VOLUME 87.4 fL (80.0-94.0); MEAN PLATELET VOLUME 7.8 fl (7.4-10.4); PLATELET 466 x1000/uL (130-400); RED BLOOD CELL COUNT 3.14 mill/uL (4.7-6.1); RED CELL DISTRIBUTION WIDTH 15.7 % (11.6-14.6); WHITE BLOOD COUNT 5.5 x1000/uL (4.5-11.0)
[2023-11-26 18:48] LABS: CHLORIDE 102 mEq/L (98-107); POTASSIUM 3.7 mEq/L (3.5-5.1); SODIUM 132 mEq/L (136-145)
[2023-11-26 18:49] LABS: CALCIUM 8.3 mg/dL (8.7-10.4); CARBON DIOXIDE 29 mEq/L (21-32); DIFFERENTIAL COMMENT 1
[2023-11-26 18:54] LABS: CREATININE 0.8 mg/dL (0.6-1.3); GLUCOSE 146 mg/dL (70-105); UREA NITROGEN BLOOD 9 mg/dL (9-23)
[2023-11-26 18:56] LABS: ALANINE AMINOTRANSFERASE 51 IU/L (10-49); ALBUMIN 3.1 g/dL (3.2-4.8); ASPARTATE AMINOTRANSFERASE 55 IU/L (<34)
[2023-11-26 18:57] LABS: BILIRUBIN TOTAL 0.4 mg/dL (0.1-1.0); PROTEIN TOTAL 6.2 g/dL (6.0-8.3); TROPONIN I HIGH SENSITIVITY < 4 ng/L (3.0-53)
[2023-11-26 19:03] LABS: PARTIAL THROMBOPLASTIN TIME 24.4 sec (23.4-31.0); PROTHROMBIN TIME 10.7 sec (9.6-11.0)
[2023-11-26 21:05] LABS: PLATELET ESTIMATE INCREASED
[2023-11-26 21:06] LABS: ANISOCYTOSIS 1+; HYPOCHROMASIA 1+
[2023-11-26] MEDS: ASPIRIN 81MG TABLET PO ONE (21:36)
[2023-11-26] MEDS: IOHEXOL-350 100 ML BOTTLE ONE (22:20)
[2023-11-27 08:00] VITALS: BP 106/63; PULSE 87; RESP 18; TEMP 36.114; O2SAT 97
[2023-11-27] MEDS ORDERED: ENOXAPARIN 30MG/0.3ML SYR SUBCUT SCH (09:00)
[2023-11-27 10:02] VITALS: BP 106/63; PULSE 87; RESP 18; TEMP 35.8064
[2023-11-27] MEDS ORDERED: MIDO5TAB4 PO (10:10)
[2023-11-27] MEDS ORDERED: METO10TA3 PO (10:10)
[2023-11-27] MEDS ORDERED: PANT40TA51 PO (10:10)
[2023-11-27] MEDS: ASPIRIN 325MG EC TABLET PO SCH (10:24)
[2023-11-27] MEDS: ENOXAPARIN 40MG/0.4ML SYR SUBCUT SCH (10:26)
[2023-11-27 12:00] VITALS: BP_SYST 103; BP_SYST 108; BP_DIAS 63; BP_DIAS 98; PULSE 87; RESP 18; TEMP 36.114; O2SAT 97; O2SAT 98
[2023-11-27 16:00] VITALS: BP 102/59; PULSE 110; RESP 16; TEMP 36.28068; O2SAT 96
[2023-11-27 20:00] VITALS: BP 110/73; PULSE 113; RESP 19; TEMP 36.50292; O2SAT 98
[2023-11-28] VITALS: BP 104/71; PULSE 93; RESP 20; TEMP 36.61404; O2SAT 96
[2023-11-28 04:00] VITALS: BP 116/76; PULSE 61; PULSE 91; RESP 19; TEMP 36.72516; O2SAT 97
[2023-11-28 06:41] LABS: CARBON DIOXIDE 26 mEq/L (21-32); CHLORIDE 102 mEq/L (98-107); POTASSIUM 3.9 mEq/L (3.5-5.1); SODIUM 134 mEq/L (136-145)
[2023-11-28 06:42] LABS: CALCIUM 8.5 mg/dL (8.7-10.4)
[2023-11-28 06:46] LABS: CREATININE 0.8 mg/dL (0.6-1.3)
[2023-11-28 06:47] LABS: GLUCOSE 110 mg/dL (70-105); UREA NITROGEN BLOOD 9 mg/dL (9-23)
[2023-11-28 07:35] LABS: BASOPHILS % 0.6 % (0.0-2.0); EOSINOPHILS % 4.5 % (0.0-5.0); HEMATOCRIT. 29.3 % (42.0-52.0); HEMOGLOBIN. 9.5 g/dL (14.0-18.0); LYMPHOCYTES % 19.8 % (20.0-50.0); MEAN CORPUSCULAR HEMOGLOBIN 28.5 pg (28.0-32.0); MEAN CORPUSCULAR HGB CONC 32.4 g/dL (31.0-37.0); MEAN CORPUSCULAR VOLUME 87.9 fL (80.0-94.0); MEAN PLATELET VOLUME 8.1 fl (7.4-10.4); NEUTROPHILS % 64.1 % (40.0-76.0); PLATELET 473 x1000/uL (130-400); RED BLOOD CELL COUNT 3.33 mill/uL (4.7-6.1); WHITE BLOOD COUNT 4.5 x1000/uL (4.5-11.0)
[2023-11-28 08:00] VITALS: BP_SYST 114; BP_SYST 141; BP_DIAS 62; BP_DIAS 69; PULSE 101; PULSE 90; RESP 18; RESP 19; TEMP 36.33624; TEMP 36.61404; O2SAT 98
[2023-11-28 08:26] LABS: DIFFERENTIAL COMMENT 1
[2023-11-28 12:00] VITALS: BP 112/66; PULSE 86; RESP 16; TEMP 36.55848; O2SAT 96
[2023-11-28 16:00] VITALS: BP 110/72; PULSE 110; RESP 16; TEMP 36.50292; O2SAT 96
[2023-11-28 20:00] VITALS: BP 110/73; PULSE 111; RESP 20; TEMP 36.78072; O2SAT 97
[2023-11-28] MEDS: RIVAROXABAN 20 MG TABLET PO SCH (21:29)
[2023-11-28] MEDS: ATORVASTATIN CALCIUM 40MG TABLET PO SCH (21:33)
[2023-11-29] VITALS: BP 112/82; PULSE 108; RESP 20; TEMP 36.6696; O2SAT 97
[2023-11-29 08:00] VITALS: BP 117/77; PULSE 88; RESP 18; TEMP 36.55848; O2SAT 98
[2023-11-29] MEDS: PANTOPRAZOLE 40MG DR TABLET PO SCH (09:30)
[2023-11-29 12:00] VITALS: BP 111/68; PULSE 119; RESP 19; TEMP 36.22512; O2SAT 98
[2023-11-29 16:00] VITALS: BP 100/71; PULSE 95; RESP 20; TEMP 36.3918; O2SAT 98
[2023-11-29 20:00] VITALS: BP 114/89; PULSE 113; RESP 19; TEMP 36.6696; O2SAT 100
[2023-11-30] VITALS: BP 110/73; PULSE 114; RESP 19; TEMP 36.78072; O2SAT 98
[2023-11-30 04:00] VITALS: BP 117/78; PULSE 114; RESP 19; TEMP 36.89184; O2SAT 100
[2023-11-30 08:00] VITALS: BP 120/68; PULSE 88; RESP 19; TEMP 36.33624; O2SAT 98
[2023-11-30 12:00] VITALS: BP 118/76; PULSE 109; RESP 18; TEMP 36.44736; O2SAT 96
[2023-11-30 17:00] VITALS: BP 108/72; PULSE 105; RESP 19; TEMP 36.55848; O2SAT 98
== END 2023-11-30 19:52 | DRG 64 ==
LOC: ER 17:48 → EDBEDREQ 20:01 → 5WST 22:24 → 7EST 11-27 05:53
PROVIDERS: ADMIT Internal Medicine; ATTEND Internal Medicine
DX: I63.9 Cerebral infarction, unspecified (principal); G93.41 Metabolic encephalopathy; E87.1 Hypo-osmolality and hyponatremia; I69.351 Hemiplegia and hemiparesis following cerebral infarction affecting right dominant side; I69.354 Hemiplegia and hemiparesis following cerebral infarction affecting left non-dominant side; I10 Essential (primary) hypertension; E11.9 Type 2 diabetes mellitus without complications; K21.9 Gastro-esophageal reflux disease without esophagitis; F03.90 Unspecified dementia, unspecified severity, without behavioral disturbance, psychotic disturbance, mood disturbance, and anxiety; I48.91 Unspecified atrial fibrillation; D64.9 Anemia, unspecified; R29.724 NIHSS score 24; E78.00 Pure hypercholesterolemia, unspecified; G51.0 Bell's palsy; Z79.82 Long term (current) use of aspirin
CPT/HCPCS: 36415; 70496; 70498; 70551; 71045; 80048; 80053; 80061; 83036; 84484; 85025; 86850; 86900; 92610; 93005; 93306; 97110; 97162; 97166; 97530; 99291; J1650; J7030; Q9967

== ENCOUNTER 2024-04-01 18:06 | Inpatient (IN) | payer MEDICARE, MEDICAID ==
[~2024-04-01] VITALS: Ht 180.3 cm; Wt 123.4 kg
[~2024-04-01 18:06] MED LIST changes: -ASPI-1406 PO; -CLOP-31 PO; -GABA-532 PO; -HYDR25TA PO; +METO10TA3 PO; +PANT40TA51 PO; -RIVA20TA PO
[2024-04-01 20:22] LABS: BASOPHILS % 0.8 % (0.0-2.0); EOSINOPHILS % 3.3 % (0.0-5.0); LYMPHOCYTES % 30.4 % (20.0-50.0); MEAN CORPUSCULAR HEMOGLOBIN 27.3 pg (28.0-32.0); MEAN CORPUSCULAR HGB CONC 32.5 g/dL (31.0-37.0); MEAN CORPUSCULAR VOLUME 84.2 fL (80.0-94.0); MONOCYTES % 14.1 % (2.0-8.0); NEUTROPHILS % 51.4 % (40.0-76.0); PLATELET 125 x1000/uL (130-400); RED BLOOD CELL COUNT 4.75 mill/uL (4.7-6.1); RED CELL DISTRIBUTION WIDTH 24.1 % (11.6-14.6)
[2024-04-01 20:25] LABS: DIFFERENTIAL COMMENT 1
[2024-04-01 20:26] LABS: ADD RBC MORPHOLOGY YES
[2024-04-01 20:30] LABS: CHLORIDE 106 mEq/L (98-107); POTASSIUM 4.1 mEq/L (3.5-5.1); SODIUM 143 mEq/L (136-145)
[2024-04-01 20:31] LABS: CARBON DIOXIDE 30 mEq/L (21-32)
[2024-04-01 20:32] LABS: CALCIUM 9.7 mg/dL (8.7-10.4)
[2024-04-01 20:36] LABS: CREATININE 0.7 mg/dL (0.6-1.3); GLUCOSE 94 mg/dL (70-105); TROPONIN I HIGH SENSITIVITY 6 ng/L (3.0-53)
[2024-04-01 20:37] LABS: UREA NITROGEN BLOOD 10 mg/dL (9-23)
[2024-04-01 20:38] LABS: ALANINE AMINOTRANSFERASE 33 IU/L (10-49); ALBUMIN 3.7 g/dL (3.2-4.8); ASPARTATE AMINOTRANSFERASE 45 IU/L (<34)
[2024-04-01 20:39] LABS: BILIRUBIN TOTAL 0.3 mg/dL (0.1-1.0); PHOSPHORUS 5.1 mg/dL (2.5-4.9); PROTEIN TOTAL 7.1 g/dL (6.0-8.3)
[2024-04-01 20:41] LABS: THYROID STIMULATING HORMONE 2.52 uIU/mL (0.55-4.78)
[2024-04-01 21:10] LABS: ANISOCYTOSIS 2+; OVALOCYTES 1+; PLATELET ESTIMATE SLIGHTLY DECREASED
[2024-04-01] MEDS ORDERED: PROPOFOL 10MG/ML 100ML 100 ML IV SCH (23:00)
[2024-04-01] MEDS ORDERED: FENTANYL 2500MCG/250ML PMX 250 ML IV ONE (23:00)
[2024-04-01 23:41] VITALS: PULSE 59; RESP 16; O2SAT 99
[2024-04-01] MEDS ORDERED: FENTANYL CITRATE 2,500 MCG in SODIUM CHLORIDE 0.9% 200 ML IV PRN (23:45)
[2024-04-01] MEDS: NOREPINEPHRINE 8MG/250ML PMX 250 ML IV ONE (23:55)
[2024-04-01] MEDS: ETOMIDATE 2MG/ML 10ML VIAL IV ONE (23:55)
[2024-04-01] MEDS: SUCCINYLCHOLINE CHLORIDE 200MG/10ML IV ONE (23:55)
[2024-04-02] VITALS (9 sets, daily range): PULSE 61–81; RESP 24–32; O2SAT 97–100
[2024-04-02] MEDS ORDERED: EPINEPHRINE 10 MG in SODIUM CHLORIDE 0.9% 240 ML IV PRN ×2 (00:30→06:45)
[2024-04-02] MEDS: EPINEPHRINE 10 MG in SODIUM CHLORIDE 0.9% 240 ML IV PRN ×2 (00:50→06:54)
[2024-04-02 02:34] LABS: BG CARBOXYHEMOGLOBIN 0.7 % (0.5-1.5); BG DEOXYHEMOGLOBIN 0.3 % (0.0-5.0); BG FRACTION INSPIRED OXYGEN 100; BG METHEMOGLOBIN 0.1 % (0.5-1.5); BG OXYGEN SATURATION 99.7 % (94.0-98.0); BG OXYHEMOGLOBIN 98.9 % (94.0-98.0); BG PCO2 56.9 mmHg (35.0-48.0); BG PH 7.261 (7.350-7.450); BG PO2 290.1 mmHg (83.0-108.0); BG SAMPLE SITE LEFT RADIAL; BG TOTAL HEMOGLOBIN 14.7 g/dL (13.5-17.5); BG VENT MODE VENT - AC
[2024-04-02] MEDS: NOREPINEPHRINE 8MG/250ML PMX 250 ML IV SCH ×2 (05:50→13:42)
[2024-04-02] MEDS: PIPERACILLIN/TAZO 3.375G/50ML 50 ML IV NR (06:30)
[2024-04-02] MEDS: SODIUM CHLORIDE 0.9% (SEPSIS BOLUS) IV ONE (06:54)
[2024-04-02 08:15] LABS: HEMATOCRIT 39.5 % (42.0-52.0); HEMOGLOBIN 12.8 g/dL (14.0-18.0); MEAN CORPUSCULAR HEMOGLOBIN 27.4 pg (28.0-32.0); MEAN CORPUSCULAR HGB CONC 32.5 g/dL (31.0-37.0); MEAN CORPUSCULAR VOLUME 84.5 fL (80.0-94.0); PLATELET 153 x1000/uL (130-400); RED BLOOD CELL COUNT 4.68 mill/uL (4.7-6.1); RED CELL DISTRIBUTION WIDTH 23.3 % (11.6-14.6); WHITE BLOOD COUNT 6.2 x1000/uL (4.5-11.0)
[2024-04-02 08:16] LABS: CHLORIDE 108 mEq/L (98-107); POTASSIUM 2.9 mEq/L (3.5-5.1); SODIUM 144 mEq/L (136-145)
[2024-04-02 08:17] LABS: CARBON DIOXIDE 20 mEq/L (21-32)
[2024-04-02 08:18] LABS: CALCIUM 9.7 mg/dL (8.7-10.4)
[2024-04-02 08:22] LABS: CREATININE 1.1 mg/dL (0.6-1.3)
[2024-04-02 08:23] LABS: UREA NITROGEN BLOOD 12 mg/dL (9-23)
[2024-04-02 08:24] LABS: AMMONIA 40 uMol/L (<32)
[2024-04-02] MEDS ORDERED: ONDANSETRON HCL 4MG/2ML INJ IV PRN (08:30)
[2024-04-02 08:32] LABS: VITAMIN B12 SERUM 1029 pg/mL (211-911)
[2024-04-02 08:42] LABS: LACTIC ACID 6.2 mmol/L (0.4-2.0)
[2024-04-02 08:47] LABS: GLUCOSE 255 mg/dL (70-105)
[2024-04-02] MEDS: PANTOPRAZOLE SODIUM 40 MG/VIAL IV SCH ×2 (09:51→09:54)
[2024-04-02] MEDS: BLOOD SUGAR DIAGNOSTIC STRIP TEST SCH (09:52)
[2024-04-02 10:08] LABS: BG BASE EXCESS -4.2 mmol/L (-2.0-3.0); BG CARBOXYHEMOGLOBIN 0.5 % (0.5-1.5); BG DEOXYHEMOGLOBIN 0.9 % (0.0-5.0); BG FRACTION INSPIRED OXYGEN 100; BG HCO3 ACT 22.1 mmol/L (21.0-28.0); BG METHEMOGLOBIN 0.3 % (0.5-1.5); BG OXYGEN SATURATION 99.1 % (94.0-98.0); BG OXYHEMOGLOBIN 98.3 % (94.0-98.0); BG PCO2 45.6 mmHg (35.0-48.0); BG PH 7.304 (7.350-7.450); BG PO2 161.5 mmHg (83.0-108.0); BG SAMPLE SITE RIGHT RADIAL; BG TOTAL HEMOGLOBIN 13.1 g/dL (13.5-17.5); BG VENT MODE VENT - AC
[2024-04-02] MEDS: INSULIN LISPRO 100 UNITS/ML SUBCUT SCH (10:56)
[2024-04-02] MEDS ORDERED: VASOPRESSIN 20 UNIT in SODIUM CHLORIDE 0.9% 99 ML IV PRN (11:00)
[2024-04-02] MEDS: VASOPRESSIN 20 UNIT in SODIUM CHLORIDE 0.9% 99 ML IV PRN (11:32)
[2024-04-02 12:15] LABS: BASOPHILS % 0.3 % (0.0-2.0); EOSINOPHILS % 0.1 % (0.0-5.0); HEMATOCRIT. 44.3 % (42.0-52.0); HEMOGLOBIN. 13.9 g/dL (14.0-18.0); LYMPHOCYTES % 8.7 % (20.0-50.0); MEAN CORPUSCULAR HEMOGLOBIN 26.9 pg (28.0-32.0); MEAN CORPUSCULAR HGB CONC 31.3 g/dL (31.0-37.0); MEAN CORPUSCULAR VOLUME 85.8 fL (80.0-94.0); MEAN PLATELET VOLUME 8.1 fl (7.4-10.4); MONOCYTES % 6.7 % (2.0-8.0); NEUTROPHILS % 84.2 % (40.0-76.0); RED BLOOD CELL COUNT 5.17 mill/uL (4.7-6.1); RED CELL DISTRIBUTION WIDTH 23.4 % (11.6-14.6); WHITE BLOOD COUNT 8.8 x1000/uL (4.5-11.0)
[2024-04-02 12:16] LABS: CHLORIDE 109 mEq/L (98-107); POTASSIUM 3.6 mEq/L (3.5-5.1); SODIUM 143 mEq/L (136-145)
[2024-04-02 12:17] LABS: CALCIUM 10.2 mg/dL (8.7-10.4); CARBON DIOXIDE 18 mEq/L (21-32)
[2024-04-02 12:20] LABS: DIFFERENTIAL COMMENT 1
[2024-04-02 12:22] LABS: CREATININE 1.1 mg/dL (0.6-1.3); GLUCOSE 221 mg/dL (70-105); UREA NITROGEN BLOOD 10 mg/dL (9-23)
[2024-04-02 12:24] LABS: ALANINE AMINOTRANSFERASE 42 IU/L (10-49); ALBUMIN 3.3 g/dL (3.2-4.8); ASPARTATE AMINOTRANSFERASE 72 IU/L (<34); BILIRUBIN TOTAL 0.6 mg/dL (0.1-1.0); CREATINE KINASE 479 IU/L (46-171); PROTEIN TOTAL 6.6 g/dL (6.0-8.3)
[2024-04-02 12:36] LABS: TROPONIN I HIGH SENSITIVITY 1396 ng/L (3.0-53)
[2024-04-02 12:42] LABS: BG BASE EXCESS -4.5 mmol/L (-2.0-3.0); BG CARBOXYHEMOGLOBIN 0.5 % (0.5-1.5); BG DEOXYHEMOGLOBIN 1.3 % (0.0-5.0); BG FRACTION INSPIRED OXYGEN 100; BG HCO3 ACT 20.5 mmol/L (21.0-28.0); BG METHEMOGLOBIN 0.1 % (0.5-1.5); BG OXYGEN SATURATION 98.7 % (94.0-98.0); BG OXYHEMOGLOBIN 98.1 % (94.0-98.0); BG PCO2 37.9 mmHg (35.0-48.0); BG PH 7.352 (7.350-7.450); BG PO2 133.4 mmHg (83.0-108.0); BG SAMPLE SITE RIGHT RADIAL; BG TOTAL HEMOGLOBIN 13.3 g/dL (13.5-17.5); BG VENT MODE VENT - AC
[2024-04-02 12:58] LABS: ADD RBC MORPHOLOGY YES
[2024-04-02 13:00] LABS: PLATELET 131 x1000/uL (130-400)
[2024-04-02] MEDS: PIPERACILLIN/TAZO 3.375G/100ML IV SCH (14:43)
[2024-04-02] MEDS: VANCOMYCIN 1.5GM PMX (XELLIA) 300 ML IV SCH (14:47)
[2024-04-02 16:05] LABS: CLARITY URINE CLOUDY (CLEAR); COLOR URINE DARK YELLOW (YELLOW); GLUCOSE URINE 1+ (NEGATIVE); KETONES URINE 1+ (NEGATIVE); LEUKOCYTE ESTERASE URINE 1+ (NEGATIVE); NITRITE URINE NEGATIVE (NEGATIVE); OCCULT BLOOD URINE TRACE (NEGATIVE); PROTEIN URINE 2+ (NEGATIVE); SPECIFIC GRAVITY URINE 1.019 (1.005-1.030)
[2024-04-02 17:14] LABS: BACTERIA URINE 2+; HYALINE CASTS URINE 0-5 /lpf; RBC URINE 0-2 /hpf (0-2); SQUAMOUS EPITHELIAL CELL URINE FEW /lpf (RARE/1+)
[2024-04-02] MEDS: LEVETIRACETAM 500MG PREMIX 100 ML IV SCH (22:48)
[2024-04-02] MEDS: VANCOMYCIN 750MG/150ML (BAXTER) IV SCH (23:27)
[2024-04-03] VITALS (100 sets, daily range): BP systolic 62–175; BP diastolic 39–145; PULSE 56–89; RESP 18–32; TEMP 34.75–37.16964; O2SAT 95–100
[2024-04-03] MEDS ORDERED: VASOPRESSIN 20 UNIT in SODIUM CHLORIDE 0.9% 99 ML IV PRN (01:45)
[2024-04-03] MEDS ORDERED: FENTANYL 2500MCG/250ML PMX 250 ML IV PRN ×2 (01:45→04:00)
[2024-04-03] MEDS ORDERED: NOREPINEPHRINE 8 MG in DEXT 5% WATER 242 ML IV PRN (01:45)
[2024-04-03 03:15] LABS: CREATINE KINASE MB FRACTION 18.9 ng/mL (0.5-3.6)
[2024-04-03] MEDS: FENTANYL CITRATE 2,500 MCG in SODIUM CHLORIDE 0.9% 200 ML IV PRN (04:08)
[2024-04-03 06:56] LABS: CARBON DIOXIDE 19 mEq/L (21-32); CHLORIDE 110 mEq/L (98-107); SODIUM 141 mEq/L (136-145)
[2024-04-03 06:57] LABS: CALCIUM 9.3 mg/dL (8.7-10.4)
[2024-04-03 07:02] LABS: CREATININE 0.9 mg/dL (0.6-1.3); GLUCOSE 110 mg/dL (70-105); UREA NITROGEN BLOOD 12 mg/dL (9-23)
[2024-04-03 07:06] LABS: POTASSIUM 5.9 mEq/L (3.5-5.1)
[2024-04-03] MEDS: VANCOMYCIN 750MG/150ML (BAXTER) IV SCH (09:44)
[2024-04-03 10:04] LABS: BG BASE EXCESS -5.4 mmol/L (-2.0-3.0); BG CARBOXYHEMOGLOBIN 0.5 % (0.5-1.5); BG DEOXYHEMOGLOBIN 2.4 % (0.0-5.0); BG FRACTION INSPIRED OXYGEN 80; BG HCO3 ACT 20.2 mmol/L (21.0-28.0); BG METHEMOGLOBIN 0.3 % (0.5-1.5); BG OXYGEN SATURATION 97.6 % (94.0-98.0); BG OXYHEMOGLOBIN 96.8 % (94.0-98.0); BG PCO2 40.1 mmHg (35.0-48.0); BG PH 7.321 (7.350-7.450); BG PO2 104.3 mmHg (83.0-108.0); BG SAMPLE SITE RIGHT RADIAL; BG TOTAL HEMOGLOBIN 14.4 g/dL (13.5-17.5); BG VENT MODE VENT - AC
[2024-04-03] MEDS: MIDAZOLAM 100MG/100ML PMX 100 ML IV PRN (10:14)
[2024-04-03] MEDS: NOREPINEPHRINE 32 MG in DEXT 5% WATER 218 ML IV PRN (10:39)
[2024-04-03] MEDS: DEXTROSE 50% WATER 50ML SYRINGE IV PRN (12:43)
[2024-04-04] VITALS (107 sets, daily range): BP systolic 80–143; BP diastolic 59–113; PULSE 42–91; RESP 18–28; TEMP 37.05852–37.16964; O2SAT 97–100
[2024-04-04] MEDS ORDERED: CLOP75TA33 PO (01:02)
[2024-04-04] MEDS ORDERED: HYDR25TA PO (01:02)
[2024-04-04] MEDS ORDERED: GABA-1180 PO (01:02)
[2024-04-04] MEDS: NOREPINEPHRINE 32 MG in SODIUM CHLORIDE 0.9% 218 ML IV PRN (04:43)
[2024-04-04 05:57] LABS: BASOPHILS % 0.2 % (0.0-2.0); EOSINOPHILS % 0.2 % (0.0-5.0); HEMATOCRIT. 38.8 % (42.0-52.0); HEMOGLOBIN. 12.8 g/dL (14.0-18.0); LYMPHOCYTES % 12.9 % (20.0-50.0); MEAN CORPUSCULAR HEMOGLOBIN 27.9 pg (28.0-32.0); MEAN CORPUSCULAR HGB CONC 32.9 g/dL (31.0-37.0); MEAN CORPUSCULAR VOLUME 84.6 fL (80.0-94.0); MEAN PLATELET VOLUME 8.2 fl (7.4-10.4); MONOCYTES % 9.1 % (2.0-8.0); NEUTROPHILS % 77.6 % (40.0-76.0); PLATELET 108 x1000/uL (130-400); RED BLOOD CELL COUNT 4.59 mill/uL (4.7-6.1); RED CELL DISTRIBUTION WIDTH 24.2 % (11.6-14.6); WHITE BLOOD COUNT 8.3 x1000/uL (4.5-11.0)
[2024-04-04 06:07] LABS: CARBON DIOXIDE 23 mEq/L (21-32); CHLORIDE 110 mEq/L (98-107); POTASSIUM 3.7 mEq/L (3.5-5.1); SODIUM 143 mEq/L (136-145)
[2024-04-04 06:08] LABS: CALCIUM 9.2 mg/dL (8.7-10.4)
[2024-04-04 06:13] LABS: GLUCOSE 111 mg/dL (70-105); UREA NITROGEN BLOOD 12 mg/dL (9-23)
[2024-04-04 07:29] LABS: DIFFERENTIAL COMMENT 1
[2024-04-04] MEDS: FENTANYL CITRATE 1,000 MCG in SODIUM CHLORIDE 0.9% 80 ML IV PRN (09:23)
[2024-04-04 11:10] LABS: BG BASE EXCESS -3.3 mmol/L (-2.0-3.0); BG CARBOXYHEMOGLOBIN 0.9 % (0.5-1.5); BG DEOXYHEMOGLOBIN 1.5 % (0.0-5.0); BG FRACTION INSPIRED OXYGEN 40; BG OXYGEN SATURATION 98.5 % (94.0-98.0); BG OXYHEMOGLOBIN 97.6 % (94.0-98.0); BG PCO2 35.4 mmHg (35.0-48.0); BG PH 7.392 (7.350-7.450); BG PO2 116.3 mmHg (83.0-108.0); BG SAMPLE SITE RIGHT RADIAL; BG TOTAL HEMOGLOBIN 12.2 g/dL (13.5-17.5); BG VENT MODE VENT - AC
[2024-04-04 17:10] LABS: BG BASE EXCESS -0.4 mmol/L (-2.0-3.0); BG CARBOXYHEMOGLOBIN 0.4 % (0.5-1.5); BG DEOXYHEMOGLOBIN 6.3 % (0.0-5.0); BG FRACTION INSPIRED OXYGEN 40; BG HCO3 ACT 24.9 mmol/L (21.0-28.0); BG METHEMOGLOBIN 0.3 % (0.5-1.5); BG OXYGEN SATURATION 93.7 % (94.0-98.0); BG PCO2 43.1 mmHg (35.0-48.0); BG PH 7.379 (7.350-7.450); BG PO2 69.9 mmHg (83.0-108.0); BG SAMPLE SITE RIGHT RADIAL; BG TOTAL HEMOGLOBIN 13.1 g/dL (13.5-17.5); BG VENT MODE VENT - SIMV
[2024-04-05] VITALS (106 sets, daily range): BP systolic 78–201; BP diastolic 49–107; PULSE 49–101; RESP 17–26; TEMP 36.05844–36.89184; O2SAT 97–100
[2024-04-05] MEDS: NOREPINEPHRINE 32 MG in DEXT 5% WATER 218 ML IV PRN (02:51)
[2024-04-05 06:56] LABS: CARBON DIOXIDE 24 mEq/L (21-32); CHLORIDE 108 mEq/L (98-107); POTASSIUM 3.9 mEq/L (3.5-5.1); SODIUM 143 mEq/L (136-145)
[2024-04-05 07:02] LABS: GLUCOSE 124 mg/dL (70-105); UREA NITROGEN BLOOD 13 mg/dL (9-23)
[2024-04-05 09:13] LABS: BG BASE EXCESS 0.6 mmol/L (-2.0-3.0); BG CARBOXYHEMOGLOBIN 0.8 % (0.5-1.5); BG DEOXYHEMOGLOBIN 2.2 % (0.0-5.0); BG FRACTION INSPIRED OXYGEN 40; BG HCO3 ACT 25.4 mmol/L (21.0-28.0); BG METHEMOGLOBIN 0.3 % (0.5-1.5); BG OXYGEN SATURATION 97.8 % (94.0-98.0); BG OXYHEMOGLOBIN 96.7 % (94.0-98.0); BG PCO2 41.8 mmHg (35.0-48.0); BG PH 7.402 (7.350-7.450); BG SAMPLE SITE RIGHT RADIAL; BG TOTAL HEMOGLOBIN 12.9 g/dL (13.5-17.5); BG TOTAL RESPIRATORY RATE 26 b/min; BG VENT MODE VENT - SIMV
[2024-04-05] MEDS: MIDODRINE HCL 2.5MG TABLET PO SCH (15:58)
[2024-04-06] VITALS (104 sets, daily range): BP systolic 66–149; BP diastolic 52–109; PULSE 70–112; RESP 12–24; TEMP 35.66952–36.114; O2SAT 93–100
[2024-04-06 08:54] LABS: BASOPHILS % 0.3 % (0.0-2.0); EOSINOPHILS % 2.5 % (0.0-5.0); HEMOGLOBIN. 11.4 g/dL (14.0-18.0); LYMPHOCYTES % 11.4 % (20.0-50.0); MEAN CORPUSCULAR HEMOGLOBIN 27.3 pg (28.0-32.0); MEAN CORPUSCULAR HGB CONC 32.7 g/dL (31.0-37.0); MEAN CORPUSCULAR VOLUME 83.5 fL (80.0-94.0); MEAN PLATELET VOLUME 8.2 fl (7.4-10.4); MONOCYTES % 10.6 % (2.0-8.0); NEUTROPHILS % 75.2 % (40.0-76.0); PLATELET 61 x1000/uL (130-400); RED BLOOD CELL COUNT 4.19 mill/uL (4.7-6.1); RED CELL DISTRIBUTION WIDTH 23.5 % (11.6-14.6); WHITE BLOOD COUNT 5.4 x1000/uL (4.5-11.0)
[2024-04-06 09:02] LABS: DIFFERENTIAL COMMENT 1
[2024-04-06 09:04] LABS: PROTHROMBIN TIME 11.5 sec (9.6-11.0)
[2024-04-06 09:07] LABS: CHLORIDE 109 mEq/L (98-107); POTASSIUM 3.2 mEq/L (3.5-5.1); SODIUM 144 mEq/L (136-145)
[2024-04-06 09:10] LABS: CALCIUM 8.7 mg/dL (8.7-10.4); CARBON DIOXIDE 26 mEq/L (21-32)
[2024-04-06 09:15] LABS: CREATININE 0.8 mg/dL (0.6-1.3); GLUCOSE 154 mg/dL (70-105); UREA NITROGEN BLOOD 11 mg/dL (9-23)
[2024-04-06 09:16] LABS: ALANINE AMINOTRANSFERASE 43 IU/L (10-49)
[2024-04-06 09:17] LABS: ALBUMIN 2.9 g/dL (3.2-4.8); ASPARTATE AMINOTRANSFERASE 47 IU/L (<34); BILIRUBIN TOTAL 0.6 mg/dL (0.1-1.0); PHOSPHORUS 2.1 mg/dL (2.5-4.9); PROTEIN TOTAL 5.9 g/dL (6.0-8.3)
[2024-04-06 09:39] LABS: BG BASE EXCESS 3.7 mmol/L (-2.0-3.0); BG CARBOXYHEMOGLOBIN 0.6 % (0.5-1.5); BG DEOXYHEMOGLOBIN 0.9 % (0.0-5.0); BG FRACTION INSPIRED OXYGEN 40; BG HCO3 ACT 27.5 mmol/L (21.0-28.0); BG METHEMOGLOBIN 0.3 % (0.5-1.5); BG OXYGEN SATURATION 99.1 % (94.0-98.0); BG OXYHEMOGLOBIN 98.2 % (94.0-98.0); BG PCO2 38.8 mmHg (35.0-48.0); BG PH 7.469 (7.350-7.450); BG SAMPLE SITE RIGHT RADIAL; BG TOTAL HEMOGLOBIN 11.7 g/dL (13.5-17.5); BG VENT MODE VENT - SIMV
[2024-04-07] VITALS (112 sets, daily range): BP systolic 81–168; BP diastolic 54–146; PULSE 59–102; RESP 14–31; TEMP 35.94732–37.2252; O2SAT 95–100
[2024-04-07 06:52] LABS: CHLORIDE 108 mEq/L (98-107); POTASSIUM 3.5 mEq/L (3.5-5.1); SODIUM 143 mEq/L (136-145)
[2024-04-07 06:53] LABS: CARBON DIOXIDE 31 mEq/L (21-32)
[2024-04-07 06:54] LABS: CALCIUM 8.4 mg/dL (8.7-10.4)
[2024-04-07 06:59] LABS: CREATININE 0.8 mg/dL (0.6-1.3); GLUCOSE 153 mg/dL (70-105)
[2024-04-07 07:00] LABS: UREA NITROGEN BLOOD 12 mg/dL (9-23)
[2024-04-07 07:05] LABS: BASOPHILS % 0.1 % (0.0-2.0); EOSINOPHILS % 2.1 % (0.0-5.0); HEMOGLOBIN. 11.5 g/dL (14.0-18.0); LYMPHOCYTES % 12.4 % (20.0-50.0); MEAN CORPUSCULAR HEMOGLOBIN 27.8 pg (28.0-32.0); MEAN CORPUSCULAR HGB CONC 32.9 g/dL (31.0-37.0); MEAN CORPUSCULAR VOLUME 84.5 fL (80.0-94.0); MEAN PLATELET VOLUME 8.6 fl (7.4-10.4); MONOCYTES % 12.4 % (2.0-8.0); PLATELET 67 x1000/uL (130-400); RED BLOOD CELL COUNT 4.14 mill/uL (4.7-6.1); RED CELL DISTRIBUTION WIDTH 23.4 % (11.6-14.6); WHITE BLOOD COUNT 5.1 x1000/uL (4.5-11.0)
[2024-04-07 07:52] LABS: DIFFERENTIAL COMMENT 1
[2024-04-07] MEDS: KCL 20MEQ/100ML PREMIX 100 ML IV NR (08:44)
[2024-04-07] MEDS: MAGNESIUM 2 G PREMIX 50 ML IV NR (08:45)
[2024-04-07] MEDS: FUROSEMIDE 40MG/4ML VIAL IVP NR (08:45)
[2024-04-07 12:30] LABS: BG BASE EXCESS 2.5 mmol/L (-2.0-3.0); BG CARBOXYHEMOGLOBIN 0.8 % (0.5-1.5); BG DEOXYHEMOGLOBIN 2.1 % (0.0-5.0); BG FRACTION INSPIRED OXYGEN 40; BG HCO3 ACT 27.8 mmol/L (21.0-28.0); BG METHEMOGLOBIN 0.3 % (0.5-1.5); BG OXYGEN SATURATION 97.9 % (94.0-98.0); BG OXYHEMOGLOBIN 96.8 % (94.0-98.0); BG PCO2 46.2 mmHg (35.0-48.0); BG PH 7.398 (7.350-7.450); BG SAMPLE SITE RIGHT RADIAL; BG TOTAL HEMOGLOBIN 12.3 g/dL (13.5-17.5); BG VENT MODE VENT - CPAP
[2024-04-08] VITALS (112 sets, daily range): BP systolic 81–168; BP diastolic 27–150; PULSE 48–151; RESP 14–29; TEMP 36.44736–37.28076; O2SAT 95–100
[2024-04-08] MEDS: AMIODARONE 150MG/100ML D5W 100 ML IV NR (06:41)
[2024-04-08] MEDS ORDERED: AMIODARONE 360MG/200ML 200 ML IV SCH (06:45)
[2024-04-08 06:52] LABS: CALCIUM 8.6 mg/dL (8.7-10.4); CHLORIDE 104 mEq/L (98-107); POTASSIUM 3.6 mEq/L (3.5-5.1); SODIUM 142 mEq/L (136-145)
[2024-04-08 06:53] LABS: CARBON DIOXIDE 30 mEq/L (21-32)
[2024-04-08 06:53] LABS: BASOPHILS % 0.4 % (0.0-2.0); EOSINOPHILS % 1.5 % (0.0-5.0); HEMATOCRIT. 32.6 % (42.0-52.0); HEMOGLOBIN. 10.9 g/dL (14.0-18.0); LYMPHOCYTES % 11.9 % (20.0-50.0); MEAN CORPUSCULAR HEMOGLOBIN 28.1 pg (28.0-32.0); MEAN CORPUSCULAR HGB CONC 33.5 g/dL (31.0-37.0); MEAN CORPUSCULAR VOLUME 83.9 fL (80.0-94.0); MEAN PLATELET VOLUME 9.5 fl (7.4-10.4); MONOCYTES % 11.7 % (2.0-8.0); NEUTROPHILS % 74.5 % (40.0-76.0); PLATELET 85 x1000/uL (130-400); RED BLOOD CELL COUNT 3.89 mill/uL (4.7-6.1); RED CELL DISTRIBUTION WIDTH 23.7 % (11.6-14.6)
[2024-04-08 06:58] LABS: CREATININE 0.8 mg/dL (0.6-1.3); GLUCOSE 147 mg/dL (70-105); UREA NITROGEN BLOOD 12 mg/dL (9-23)
[2024-04-08 07:16] LABS: DIFFERENTIAL COMMENT 1
[2024-04-08] MEDS: AMIODARONE HCL 900 MG in DEXT 5% WATER 500 ML IV SCH (07:34)
[2024-04-08 12:11] LABS: BG BASE EXCESS 5.2 mmol/L (-2.0-3.0); BG CARBOXYHEMOGLOBIN 0.4 % (0.5-1.5); BG DEOXYHEMOGLOBIN 1.6 % (0.0-5.0); BG FRACTION INSPIRED OXYGEN 40; BG HCO3 ACT 28.2 mmol/L (21.0-28.0); BG METHEMOGLOBIN 0.3 % (0.5-1.5); BG OXYGEN SATURATION 98.4 % (94.0-98.0); BG OXYHEMOGLOBIN 97.7 % (94.0-98.0); BG PCO2 35.5 mmHg (35.0-48.0); BG PH 7.518 (7.350-7.450); BG PO2 112.1 mmHg (83.0-108.0); BG SAMPLE SITE RIGHT RADIAL; BG TOTAL HEMOGLOBIN 11.2 g/dL (13.5-17.5); BG VENT MODE VENT - AC
[2024-04-09] VITALS (111 sets, daily range): BP systolic 77–175; BP diastolic 51–152; PULSE 52–112; RESP 10–27; TEMP 37.2252; O2SAT 96–100
[2024-04-09 06:00] LABS: CARBON DIOXIDE 27 mEq/L (21-32); CHLORIDE 105 mEq/L (98-107); POTASSIUM 3.7 mEq/L (3.5-5.1); SODIUM 140 mEq/L (136-145)
[2024-04-09 06:02] LABS: CALCIUM 8.8 mg/dL (8.7-10.4)
[2024-04-09 06:05] LABS: CREATININE 0.8 mg/dL (0.6-1.3)
[2024-04-09 06:06] LABS: GLUCOSE 148 mg/dL (70-105)
[2024-04-09 06:07] LABS: UREA NITROGEN BLOOD 12 mg/dL (9-23)
[2024-04-09 06:36] LABS: HEMATOCRIT. 34.3 % (42.0-52.0); HEMOGLOBIN. 11.3 g/dL (14.0-18.0); MEAN CORPUSCULAR HGB CONC 32.9 g/dL (31.0-37.0); MEAN PLATELET VOLUME 9.5 fl (7.4-10.4); PLATELET 130 x1000/uL (130-400); RED BLOOD CELL COUNT 4.04 mill/uL (4.7-6.1); RED CELL DISTRIBUTION WIDTH 23.8 % (11.6-14.6); WHITE BLOOD COUNT 4.5 x1000/uL (4.5-11.0)
[2024-04-09 06:50] LABS: DIFFERENTIAL COMMENT 1
[2024-04-09 09:20] LABS: BG BASE EXCESS 5.1 mmol/L (-2.0-3.0); BG CARBOXYHEMOGLOBIN 0.3 % (0.5-1.5); BG DEOXYHEMOGLOBIN 1.6 % (0.0-5.0); BG FRACTION INSPIRED OXYGEN 40; BG HCO3 ACT 29.7 mmol/L (21.0-28.0); BG METHEMOGLOBIN 0.3 % (0.5-1.5); BG OXYGEN SATURATION 98.4 % (94.0-98.0); BG OXYHEMOGLOBIN 97.8 % (94.0-98.0); BG PCO2 43.6 mmHg (35.0-48.0); BG PH 7.451 (7.350-7.450); BG PO2 111.2 mmHg (83.0-108.0); BG SAMPLE SITE RIGHT RADIAL; BG TOTAL HEMOGLOBIN 12.5 g/dL (13.5-17.5); BG TOTAL RESPIRATORY RATE 18 b/min; BG VENT MODE VENT - SIMV
[2024-04-09 11:35] LABS: ANISOCYTOSIS 2+; PLATELET ESTIMATE NORMAL
[2024-04-09] MEDS: IPRATROPIUM/ALBUTEROL 0.5-3(2.5)MG/3ML NEB HHN SCH (12:34)
[2024-04-09] MEDS: GUAIFENESIN 200MG/10ML SUGAR FREE UDC PO SCH (12:44)
[2024-04-09] MEDS: FENTANYL CITRATE/PF 1,000 MCG in SODIUM CHLORIDE 0.9% 80 ML IV PRN (14:35)
[2024-04-09] MEDS: ACETYLCYSTEINE 200MG/ML 20% VIAL 4ML INH SCH (15:42)
[2024-04-09] MEDS: AMIODARONE 200MG TABLET NG SCH (20:57)
[2024-04-10] VITALS (102 sets, daily range): BP systolic 69–175; BP diastolic 45–158; PULSE 70–158; RESP 15–34; TEMP 36.44736–37.00296; O2SAT 92–100
[2024-04-10 06:09] LABS: CARBON DIOXIDE 32 mEq/L (21-32); CHLORIDE 101 mEq/L (98-107); POTASSIUM 4.1 mEq/L (3.5-5.1); SODIUM 137 mEq/L (136-145)
[2024-04-10 06:10] LABS: CALCIUM 8.8 mg/dL (8.7-10.4)
[2024-04-10 06:15] LABS: GLUCOSE 154 mg/dL (70-105); UREA NITROGEN BLOOD 12 mg/dL (9-23)
[2024-04-10 06:24] LABS: HEMATOCRIT. 36.8 % (42.0-52.0); MEAN CORPUSCULAR HEMOGLOBIN 27.9 pg (28.0-32.0); MEAN CORPUSCULAR HGB CONC 32.5 g/dL (31.0-37.0); MEAN PLATELET VOLUME 8.6 fl (7.4-10.4); PLATELET 209 x1000/uL (130-400); RED BLOOD CELL COUNT 4.28 mill/uL (4.7-6.1); RED CELL DISTRIBUTION WIDTH 23.6 % (11.6-14.6); WHITE BLOOD COUNT 5.7 x1000/uL (4.5-11.0)
[2024-04-10 07:56] LABS: DIFFERENTIAL COMMENT 1
[2024-04-10 09:04] LABS: BG BASE EXCESS 5.9 mmol/L (-2.0-3.0); BG CARBOXYHEMOGLOBIN 0.8 % (0.5-1.5); BG FRACTION INSPIRED OXYGEN 40; BG HCO3 ACT 30.6 mmol/L (21.0-28.0); BG METHEMOGLOBIN 0.3 % (0.5-1.5); BG OXYHEMOGLOBIN 96.9 % (94.0-98.0); BG PH 7.451 (7.350-7.450); BG PO2 105.1 mmHg (83.0-108.0); BG SAMPLE SITE RIGHT RADIAL; BG TOTAL HEMOGLOBIN 12.5 g/dL (13.5-17.5); BG TOTAL RESPIRATORY RATE 12 b/min; BG VENT MODE VENT - SIMV
[2024-04-10 11:02] LABS: BG BASE EXCESS 4.6 mmol/L (-2.0-3.0); BG CARBOXYHEMOGLOBIN 0.2 % (0.5-1.5); BG DEOXYHEMOGLOBIN 2.3 % (0.0-5.0); BG FRACTION INSPIRED OXYGEN 40; BG HCO3 ACT 29.9 mmol/L (21.0-28.0); BG METHEMOGLOBIN 0.3 % (0.5-1.5); BG OXYGEN SATURATION 97.7 % (94.0-98.0); BG OXYHEMOGLOBIN 97.2 % (94.0-98.0); BG PH 7.421 (7.350-7.450); BG PO2 103.5 mmHg (83.0-108.0); BG SAMPLE SITE RIGHT RADIAL; BG TOTAL HEMOGLOBIN 12.2 g/dL (13.5-17.5); BG VENT MODE VENT - CPAP
[2024-04-10 16:31] LABS: ANISOCYTOSIS 2+; PLATELET ESTIMATE NORMAL
[2024-04-10 16:32] LABS: GIANT PLATELETS FEW
[2024-04-11] VITALS (81 sets, daily range): BP systolic 79–191; BP diastolic 56–166; PULSE 70–141; RESP 18–30; TEMP 36.50292–36.55848; O2SAT 87–100
[2024-04-11 05:48] LABS: BASOPHILS % 0.6 % (0.0-2.0); EOSINOPHILS % 1.3 % (0.0-5.0); HEMATOCRIT. 32.9 % (42.0-52.0); HEMOGLOBIN. 10.8 g/dL (14.0-18.0); LYMPHOCYTES % 10.1 % (20.0-50.0); MEAN CORPUSCULAR HEMOGLOBIN 28.1 pg (28.0-32.0); MEAN CORPUSCULAR HGB CONC 32.8 g/dL (31.0-37.0); MEAN CORPUSCULAR VOLUME 85.7 fL (80.0-94.0); MEAN PLATELET VOLUME 8.5 fl (7.4-10.4); MONOCYTES % 11.9 % (2.0-8.0); NEUTROPHILS % 76.1 % (40.0-76.0); PLATELET 229 x1000/uL (130-400); RED BLOOD CELL COUNT 3.84 mill/uL (4.7-6.1); WHITE BLOOD COUNT 6.5 x1000/uL (4.5-11.0)
[2024-04-11 06:02] LABS: DIFFERENTIAL COMMENT 1
[2024-04-11 06:15] LABS: CARBON DIOXIDE 28 mEq/L (21-32); CHLORIDE 104 mEq/L (98-107); SODIUM 140 mEq/L (136-145)
[2024-04-11 06:16] LABS: CALCIUM 9.1 mg/dL (8.7-10.4)
[2024-04-11 06:21] LABS: GLUCOSE 138 mg/dL (70-105); UREA NITROGEN BLOOD 12 mg/dL (9-23)
[2024-04-12] VITALS (24 sets, daily range): BP systolic 95–125; BP diastolic 52–85; PULSE 69–93; RESP 17–31; TEMP 36.05844–36.61404; O2SAT 96–100
[2024-04-12 07:20] LABS: HEMATOCRIT 35.1 % (42.0-52.0); HEMOGLOBIN 11.3 g/dL (14.0-18.0); MEAN CORPUSCULAR HEMOGLOBIN 27.9 pg (28.0-32.0); MEAN CORPUSCULAR HGB CONC 32.1 g/dL (31.0-37.0); MEAN CORPUSCULAR VOLUME 86.8 fL (80.0-94.0); PLATELET 309 x1000/uL (130-400); RED BLOOD CELL COUNT 4.04 mill/uL (4.7-6.1); RED CELL DISTRIBUTION WIDTH 23.4 % (11.6-14.6); WHITE BLOOD COUNT 8.1 x1000/uL (4.5-11.0)
[2024-04-12 07:26] LABS: CHLORIDE 106 mEq/L (98-107); POTASSIUM 4.3 mEq/L (3.5-5.1); SODIUM 142 mEq/L (136-145)
[2024-04-12 07:27] LABS: CALCIUM 8.7 mg/dL (8.7-10.4); CARBON DIOXIDE 25 mEq/L (21-32)
[2024-04-12 07:32] LABS: CREATININE 0.8 mg/dL (0.6-1.3); GLUCOSE 98 mg/dL (70-105); UREA NITROGEN BLOOD 11 mg/dL (9-23)
[2024-04-12] MEDS: FUROSEMIDE 40MG/4ML VIAL IVP SCH (11:38)
[2024-04-12] MEDS: METOCLOPRAMIDE HCL 10MG TABLET PO SCH (13:53)
[2024-04-12] MEDS: GABAPENTIN 300MG CAPSULE PO SCH (13:55)
[2024-04-12] MEDS ORDERED: FAMOTIDINE(NEO) 1MG/ML SUSP PO SCH (21:00)
[2024-04-12] MEDS: ATORVASTATIN CALCIUM 40MG TABLET PO SCH (21:28)
[2024-04-13] VITALS (17 sets, daily range): BP systolic 90–116; BP diastolic 59–83; PULSE 60–93; RESP 16–25; TEMP 36.114–36.61404; O2SAT 97–100
[2024-04-13] MEDS: INSULIN LISPRO 100 UNITS/ML SUBCUT SCH
[2024-04-13] MEDS: BLOOD SUGAR DIAGNOSTIC STRIP TEST SCH
[2024-04-13] MEDS ORDERED: PANTOPRAZOLE 40MG DR TABLET PO SCH (07:50)
[2024-04-13] MEDS: HYDROCHLOROTHIAZIDE 25MG TABLET PO SCH (09:00)
[2024-04-13] MEDS: LOSARTAN 100 MG TABLET PO SCH (09:00)
[2024-04-13] MEDS: ACETAMINOPHEN 325MG TABLET PO PRN (10:16)
[2024-04-13] MEDS: POTASSIUM CHLORIDE 20MEQ TABLET SR PO SCH (10:17)
[2024-04-13] MEDS: CLOPIDOGREL 75MG TABLET PO SCH (10:18)
[2024-04-14] VITALS (8 sets, daily range): BP systolic 100–115; BP diastolic 54–75; PULSE 70–99; RESP 16–24; TEMP 36.28068–37.11408; O2SAT 93–100
[2024-04-14] MEDS: ENOXAPARIN 120MG/0.8ML SYR SUBCUT SCH (00:12)
[2024-04-14] MEDS: AMIODARONE 200MG TABLET PO SCH (08:13)
[2024-04-15] VITALS: BP 106/68; PULSE 80; RESP 16; TEMP 36.33624; O2SAT 92
[2024-04-15 04:00] VITALS: BP 111/76; PULSE 100; RESP 16; TEMP 36.22512; O2SAT 97
[2024-04-15 08:00] VITALS: BP 99/55; PULSE 88; RESP 18; TEMP 36.61404; O2SAT 95
[2024-04-15 12:00] VITALS: BP 98/58; PULSE 95; RESP 20; TEMP 36.78072; O2SAT 95
[2024-04-15 16:00] VITALS: BP 101/56; PULSE 87; RESP 22; TEMP 36.83628; O2SAT 94
[2024-04-15 20:00] VITALS: BP 107/70; PULSE 86; RESP 20; TEMP 36.33624; O2SAT 97
[2024-04-16] VITALS: BP 196/85; PULSE 82; RESP 21; TEMP 37.11408; O2SAT 98
[2024-04-16 04:00] VITALS: BP 138/117; PULSE 95; RESP 22; TEMP 36.6696; O2SAT 96
[2024-04-16 08:08] VITALS: BP 114/64; PULSE 96; RESP 20; TEMP 36.44736; O2SAT 96
[2024-04-16 12:10] VITALS: BP 82/44; PULSE 68; RESP 18; TEMP 36.44736; O2SAT 96
[2024-04-16] MEDS: SODIUM CHLORIDE 0.9% 500 ML IV NR (14:57)
[2024-04-16 16:00] VITALS: BP 90/47; PULSE 74; RESP 18; TEMP 36.50292; O2SAT 96
[2024-04-16] MEDS: SODIUM CHLORIDE 0.9% 1,000 ML IV ONE (16:35)
[2024-04-16] MEDS: MIDODRINE HCL 5MG TABLET PO SCH (16:59)
[2024-04-16 20:00] VITALS: BP 93/58; PULSE 54; RESP 22; TEMP 36.00288; O2SAT 100
[2024-04-17] VITALS (7 sets, daily range): BP systolic 90–106; BP diastolic 57–77; PULSE 60–88; RESP 20–26; TEMP 35.89176–37.83636; O2SAT 94–100
[2024-04-17 22:24] LABS: BASOPHILS % 0.8 % (0.0-2.0); EOSINOPHILS % 1.7 % (0.0-5.0); HEMATOCRIT. 36.9 % (42.0-52.0); HEMOGLOBIN. 11.9 g/dL (14.0-18.0); LYMPHOCYTES % 17.5 % (20.0-50.0); MEAN CORPUSCULAR HEMOGLOBIN 27.9 pg (28.0-32.0); MEAN CORPUSCULAR HGB CONC 32.3 g/dL (31.0-37.0); MEAN CORPUSCULAR VOLUME 86.4 fL (80.0-94.0); MEAN PLATELET VOLUME 8.5 fl (7.4-10.4); MONOCYTES % 16.7 % (2.0-8.0); NEUTROPHILS % 63.3 % (40.0-76.0); PLATELET 536 x1000/uL (130-400); RED BLOOD CELL COUNT 4.27 mill/uL (4.7-6.1); RED CELL DISTRIBUTION WIDTH 21.7 % (11.6-14.6); WHITE BLOOD COUNT 5.8 x1000/uL (4.5-11.0)
[2024-04-17] MEDS: IPRATROPIUM/ALBUTEROL 0.5-3(2.5)MG/3ML NEB HHN SCH (22:26)
[2024-04-17 23:08] LABS: DIFFERENTIAL COMMENT 1
[2024-04-18] VITALS (9 sets, daily range): BP systolic 95–110; BP diastolic 60–76; PULSE 68–94; RESP 18–24; TEMP 36.22512–38.22528; O2SAT 94–100
[2024-04-19] VITALS (10 sets, daily range): BP systolic 75–112; BP diastolic 42–75; PULSE 59–98; RESP 16–19; TEMP 36.28068–37.2252; O2SAT 95–100
[2024-04-19] MEDS ORDERED: SODIUM CHLORIDE 0.9% 250 ML IV SCH ×2 (20:10→20:15)
[2024-04-19 20:36] LABS: BASOPHILS % 1.3 % (0.0-2.0); EOSINOPHILS % 1.7 % (0.0-5.0); HEMATOCRIT. 36.2 % (42.0-52.0); HEMOGLOBIN. 11.6 g/dL (14.0-18.0); LYMPHOCYTES % 19.1 % (20.0-50.0); MEAN CORPUSCULAR HEMOGLOBIN 27.8 pg (28.0-32.0); MEAN CORPUSCULAR HGB CONC 32.1 g/dL (31.0-37.0); MEAN CORPUSCULAR VOLUME 86.7 fL (80.0-94.0); MEAN PLATELET VOLUME 8.8 fl (7.4-10.4); MONOCYTES % 10.6 % (2.0-8.0); NEUTROPHILS % 67.3 % (40.0-76.0); PLATELET 543 x1000/uL (130-400); RED BLOOD CELL COUNT 4.18 mill/uL (4.7-6.1); RED CELL DISTRIBUTION WIDTH 21.8 % (11.6-14.6); WHITE BLOOD COUNT 4.8 x1000/uL (4.5-11.0)
[2024-04-19] MEDS: SODIUM CHLORIDE 0.9% 500 ML IV ONE ×3 (20:37→21:02)
[2024-04-19 20:38] LABS: CHLORIDE 100 mEq/L (98-107); POTASSIUM 4.1 mEq/L (3.5-5.1); SODIUM 138 mEq/L (136-145)
[2024-04-19 20:39] LABS: CARBON DIOXIDE 28 mEq/L (21-32)
[2024-04-19 20:44] LABS: GLUCOSE 137 mg/dL (70-105); UREA NITROGEN BLOOD 19 mg/dL (9-23)
[2024-04-19 20:46] LABS: ALANINE AMINOTRANSFERASE 12 IU/L (10-49); ALBUMIN 3.5 g/dL (3.2-4.8); ASPARTATE AMINOTRANSFERASE 32 IU/L (<34); BILIRUBIN DIRECT 0.2 mg/dL (<=3.0)
[2024-04-19 20:47] LABS: BILIRUBIN TOTAL 0.4 mg/dL (0.1-1.0); PHOSPHORUS 3.6 mg/dL (2.5-4.9); PROTEIN TOTAL 7.5 g/dL (6.0-8.3)
[2024-04-19 20:58] LABS: PROTHROMBIN TIME 11.5 sec (9.6-11.0)
[2024-04-19] MEDS: ALBUMIN HUMAN 25GM/500ML (5%) IV NR (21:04)
[2024-04-19] MEDS ORDERED: SODIUM CHLORIDE 0.9% 500 ML IV ONE (22:00)
[2024-04-20] VITALS (10 sets, daily range): BP systolic 84–118; BP diastolic 51–71; PULSE 55–94; RESP 16–22; TEMP 36.22512–36.61404; O2SAT 94–100
[2024-04-20] MEDS: ENOXAPARIN 120MG/0.8ML SYR SUBCUT SCH (01:59)
[2024-04-20] MEDS: MIDODRINE HCL 5MG TABLET PO SCH (10:09)
[2024-04-21] VITALS: BP 105/71; PULSE 81; RESP 16; TEMP 36.3918; TEMP 36.39180; O2SAT 94
== END 2024-04-21 02:59 | DRG 870 ==
LOC: ER 18:06 → CVICU 04-02 00:19 → 5EST 04-12 08:40 → 8WST 04-13 16:17
PROVIDERS: ADMIT Internal Medicine; ATTEND Internal Medicine
PROC: 05HY33Z Insertion of Infusion Device into Upper Vein, Percutaneous Approach (ICD-10-PCS; 2024-04-01)
PROC: B54NZZA Ultrasonography of Left Upper Extremity Veins, Guidance (ICD-10-PCS; 2024-04-01)
PROC: 5A1955Z Respiratory Ventilation, Greater than 96 Consecutive Hours (ICD-10-PCS; principal; 2024-04-02)
PROC: 0BH17EZ Insertion of Endotracheal Airway into Trachea, Via Natural or Artificial Opening (ICD-10-PCS; 2024-04-02)
PROC: 05H533Z Insertion of Infusion Device into Right Subclavian Vein, Percutaneous Approach (ICD-10-PCS; 2024-04-03)
PROC: B546ZZA Ultrasonography of Right Subclavian Vein, Guidance (ICD-10-PCS; 2024-04-03)
DX: A41.9 Sepsis, unspecified organism (principal); G92.8 Other toxic encephalopathy; R65.21 Severe sepsis with septic shock; I21.A1 Myocardial infarction type 2; I46.9 Cardiac arrest, cause unspecified; J69.0 Pneumonitis due to inhalation of food and vomit; J96.01 Acute respiratory failure with hypoxia; I60.9 Nontraumatic subarachnoid hemorrhage, unspecified; I69.351 Hemiplegia and hemiparesis following cerebral infarction affecting right dominant side; I69.354 Hemiplegia and hemiparesis following cerebral infarction affecting left non-dominant side; I48.20 Chronic atrial fibrillation, unspecified; G82.20 Paraplegia, unspecified; I50.32 Chronic diastolic (congestive) heart failure; I48.92 Unspecified atrial flutter; I25.10 Atherosclerotic heart disease of native coronary artery without angina pectoris; H51.0 Palsy (spasm) of conjugate gaze; E04.1 Nontoxic single thyroid nodule; I11.0 Hypertensive heart disease with heart failure; E11.51 Type 2 diabetes mellitus with diabetic peripheral angiopathy without gangrene; E83.42 Hypomagnesemia; E87.6 Hypokalemia; Z66 Do not resuscitate; I65.23 Occlusion and stenosis of bilateral carotid arteries; F03.90 Unspecified dementia, unspecified severity, without behavioral disturbance, psychotic disturbance, mood disturbance, and anxiety; E78.00 Pure hypercholesterolemia, unspecified; K21.9 Gastro-esophageal reflux disease without esophagitis; R47.1 Dysarthria and anarthria; I07.1 Rheumatic tricuspid insufficiency; I27.21 Secondary pulmonary arterial hypertension; R00.1 Bradycardia, unspecified; R13.10 Dysphagia, unspecified; S80.812A Abrasion, left lower leg, initial encounter; S80.811A Abrasion, right lower leg, initial encounter; Z79.01 Long term (current) use of anticoagulants; Z99.3 Dependence on wheelchair; I25.2 Old myocardial infarction; Z74.01 Bed confinement status; Z78.1 Physical restraint status; X58.XXXA Exposure to other specified factors, initial encounter; Y93.89 Activity, other specified; Y92.89 Other specified places as the place of occurrence of the external cause; Y99.8 Other external cause status
CPT/HCPCS: 31720; 36415; 36573; 36600; 71045; 76700; 76705; 80048; 80051; 80053; 80076; 80202; 82375; 82533; 82550; 82553; 82805; 82962; 83735; 83880; 84100; 84145; 84439; 84443; 84484; 85025; 85027; 87070; 92610; 93005; 93970; 94003; 94070; 94640; 94664; 94667; 94760; 97161; 99291; 99292; A4606; A4663; C1725; C1769; J0282; J1650; J1815; J1940; J1953; J2250; J2470; J2543; J2704; J3010; J3370; J3475; J3480; J3490; J7040; J7050; J7060; J7608; J8597; P9041